=== PATIENT | female | born 1975 | race Caucasian/White ===

== ENCOUNTER 2016-04-11 12:50 | Emergency (ER) | payer BC ==
[2016-04-11 12:59] VITALS: BP 129/87
--- NOTE | 2016-04-11 13:50 | UC ---
Gabo Barraza Anna, [facility] on 04/11/16 at 1323 . Eye Complaint HPI - HPI Summary HPI Summary: MD Note Vital signs stable. Afebrile, pulse ox 99. Occasional alcohol, nonsmoker. No prescription medications. Allergic to Sulfa. No visit history in our records. 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 pt states that it increased in the area to mostly the rt eye. pt states that the area mostly has gone now and now feels numb. In Room Note Patient is a 40 y/o female coming to [facility] presenting with gradual onset of BLURRED VISION in her right eye at 1150 today, since resolved. 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 The rippling that she saw extended to more of her field of vision. The rippling prevented an image in the right corner of her right eye. This lasted 45 minutes and is now resolved. She could not see her hand until it was in front of her face. She experienced some NAUSEA at that time. She always sees floating things in her vision. She had some DIARRHEA this morning. She has some TINGLING at baseline. She denies NATARAJAN, tinnitus. She denies history of migraines. Her period started yesterday. 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 - accompanied by Hx Last Menstrual Period: 04/10/16 - Allergies/Home Medications Allergies/Adverse Reactions: Allergies Allergy/AdvReac Type Severity Reaction Status Date / Time Sulfa Antibiotics Allergy Anaphylatic Verified 04/11/16 12:58 Shock Home Medications: Home Medications Cholecalciferol [Vitamin D] 1,000 unit PO 04/11/16 [History] PMH/Surg Hx/FS Hx/Imm Hx Previously Healthy: Yes Endocrine History Of: Denies: Diabetes - Surgical History Surgical History: Yes Surgery Procedure, Year, and Place: acl replacement, wisdom teeth extraction - Family History Known Family History: Positive: Other - Hx CA in father Negative: Cardiac Disease, Diabetes - Social History Occupation: Employed Full-time Lives: With Family Alcohol Use: Occasionally Substance Use Type: None Smoking Status (MU): Never Smoked Tobacco Review of Systems Constitutional: Negative Skin: Negative Eyes: Blurred Vision ENT: Negative Respiratory: Negative Cardiovascular: Negative Gastrointestinal: Diarrhea, Other - nausea Genitourinary: Negative Motor: Negative Neurovascular: Negative Musculoskeletal: Negative Neurological: Paresthesia Psychological: Negative All Other Systems Reviewed And Are Negative: Yes Physical Exam Triage Information Reviewed: Yes Appearance: Well-Appearing, No Pain Distress, Well-Nourished Vital Signs: Initial Vital Signs Temp 98.3 F 04/11/16 12:53 Pulse 81 04/11/16 12:53 Resp 18 04/11/16 12:53 BP 129/87 04/11/16 12:53 Pulse Ox 99 04/11/16 12:53 Eyes: Positive: Conjunctiva Clear, Other: - PERRL. No obvious abnormality on examination of fundi. ENT: Positive: Hearing grossly normal, Pharynx normal, TMs normal. Negative: Muffled/hoarse voice Neck: Positive: Supple, No Lymphadenopathy Respiratory: Positive: Chest non-tender, Lungs clear, Normal breath sounds, No respiratory distress Cardiovascular: Positive: RRR, No Murmur Abdomen Description: Positive: Nontender, No Organomegaly, Soft Bowel Sounds: Positive: Present Musculoskeletal: Positive: Strength Intact, Other: - FORREST Neurological: Positive: Alert Psychological: Positive: Age Appropriate Behavior Skin: Negative: rashes Eye Complaint Course/Dx - Course Course Of Treatment: Discussed with patient and her the history of transient visual deficit. Now resolved. Could be an abnormality of the retina and I told the pt she needs to be seen by an ruby on rails software developer. She will go to Dr. Church's She voiced understanding and agreement. Differential includes vitreous v. retinal detachment v. atypical migraine v. other. Dx transient visual deficit right eye: ? vitreous ?retinal detachment - Differential Dx/Diagnosis Differential Diagnosis/HQI/PQRI: Other - atypical migraine v. other v. Vitreous v. retinal detachment Provider Diagnoses: transient visual deficit right eye: ? Vitreous detachment ? retinal detachment Discharge - Discharge Plan Condition: Stable Disposition: HOME Patient Education Materials: Retinal Detachment (GEN) Additional Instructions: WE DISCUSSED: Your transient loss of vision needs further evaluation. We have discussed you symptoms with Dr. Church's office. Please be seen there now. The documentation as recorded by the Gabo wiseman Anna accurately reflects the service I personally performed and the decisions made by me, Kaden Gomez MD.
== END 2016-04-11 13:49 | disposition home or self-care (01) ==
LOC: UCEAST 12:50 → MERGE 12:50 → UCEAST 13:49
DX: H53.121 Transient visual loss, right eye (principal); R11.0 Nausea; R19.7 Diarrhea, unspecified; Z88.2 Allergy status to sulfonamides
CPT/HCPCS: 99201; G0463

== ENCOUNTER 2017-01-25 14:26 | Emergency (ER) | payer BC ==
[2017-01-25 14:49] VITALS: BP 109/62
--- NOTE | 2017-01-25 14:53 | UC ---
Throat Pain/Nasal Karl HPI - HPI Summary HPI Summary: 41 year old female presents with complains of sore throat and intermittent cough. - History of Current Complaint Chief Complaint: UCRespiratory Stated Complaint: SORE THROAT Time Seen by Provider: 01/25/17 14:53 Hx Obtained From: Patient Hx Last Menstrual Period: 12/10/15 Onset/Duration: Sudden Onset Severity: Moderate Pain Scale Used: 0-10 Numeric - 5 Cough: Nonproductive Associated Signs & Symptoms: Positive: Nasal Discharge - Allergies/Home Medications Allergies/Adverse Reactions: Allergies Allergy/AdvReac Type Severity Reaction Status Date / Time Sulfa Antibiotics Allergy Anaphylatic Verified 05/17/16 13:19 Shock Bee Venom Allergy Swelling Uncoded 05/17/16 13:19 Home Medications: Home Medications Ascorbic Acid TAB* [Vitamin C TAB*] 500 mg PO DAILY 01/25/17 [History Confirmed 01/25/17] Lactobacillus [Probiotic] 1 cap PO 01/25/17 [History] [place]-3 Fatty Acids [[place] 3] 1 cap PO 01/25/17 [History] PMH/Surg Hx/FS Hx/Imm Hx Previously Healthy: Yes - Surgical History Surgical History: Yes Surgery Procedure, Year, and Place: ACL REPAIR RT KNEE,WISDOM TEETH EXTRACTION - Family History Known Family History: Positive: Other - FATHER CANCER Negative: Cardiac Disease, Diabetes - Social History Alcohol Use: Weekly Substance Use Type: None Smoking Status (MU): Never Smoked Tobacco Review of Systems Constitutional: Negative Skin: Negative Eyes: Negative ENT: Sore Throat, Nasal Discharge, Sinus Congestion, Sinus Pain/Tenderness Respiratory: Negative Cardiovascular: Negative Gastrointestinal: Negative Genitourinary: Negative Motor: Negative Neurovascular: Negative Musculoskeletal: Negative Neurological: Negative Psychological: Negative All Other Systems Reviewed And Are Negative: Yes Physical Exam Triage Information Reviewed: Yes Vital Signs: Initial Vital Signs Temp 36.8 C 01/25/17 14:43 Pulse 78 01/25/17 14:43 Resp 18 01/25/17 14:43 BP 109/62 01/25/17 14:43 Pulse Ox 100 01/25/17 14:43 Vital Signs Reviewed: Yes Eye Exam: Normal ENT: Positive: Nasal congestion, Nasal drainage, Sinus tenderness Dental Exam: Normal Neck exam: Normal Neck: Positive: 1 Respiratory Exam: Normal Cardiovascular Exam: Normal Abdominal Exam: Normal Musculoskeletal Exam: Normal Neurological Exam: Normal Psychological Exam: Normal Skin Exam: Normal Throat Pain/Nasal Course/Dx - Differential Dx/Diagnosis Provider Diagnoses: pharyngitis. allergic rhinitis Discharge - Discharge Plan Condition: Stable Disposition: HOME Prescriptions: Amoxicillin PO (*) [Amoxicillin 875 MG (*)] 875 mg PO BID #20 tab LoraTADine TAB(NF) [Claritin 10 MG TAB(NF)] 10 mg PO DAILY #30 tab Magic M W2 Kp/Maal/Nyst/Lido* 5 ml SWISH SPIT QID PRN #120 ml PRN Reason: Pain Patient Education Materials: Pharyngitis (ED) Referrals: Hodan Spangler MD [Primary Care Provider] -
== END 2017-01-25 15:25 | disposition home or self-care (01) ==
LOC: UCEAST 14:26
DX: J02.9 Acute pharyngitis, unspecified (principal); J30.9 Allergic rhinitis, unspecified
CPT/HCPCS: 87651; 99212; G0463

== ENCOUNTER 2017-06-20 15:46 | Emergency (ER) | payer BC ==
[2017-06-20 16:01] VITALS: BP 120/70
--- NOTE | 2017-06-20 16:26 | RAD ---
INDICATION: Left-sided chest pain COMPARISON: Chest x-ray dated March 27, 2015 TECHNIQUE: PA and lateral views of the chest were obtained. FINDINGS: The heart and mediastinum are normal in size and contour. The lungs are grossly clear. There is no evidence of large pleural effusion. Visualized bones are normal for the patient's age. There is no radiographic evidence of free air beneath the diaphragm IMPRESSION: No radiographic evidence of acute cardiopulmonary disease.
--- NOTE | 2017-06-20 17:15 | UC ---
Cardiac HPI - HPI Summary HPI Summary: 41 yo WF no pmhX c/o left upper chest pain , feels like rubber bands pulling at her chest, somewhat reproducible at times, associated with upper shoulder and bella back pain. Denies n/v/f/c/d. Suddenly came on while she was not eating herself at the [employer] Denies fmhx of early cardiac deaths in 30' or 40's. - History of Current Complaint Chief Complaint: UCChestPain Stated Complaint: CHEST TIGHTNESS Time Seen by Provider: 06/20/17 16:07 Hx Last Menstrual Period: 06/11/17 Initial Severity: Moderate Current Severity: Moderate Pain Intensity: 1 Chest Pain Location: Left Anterior, Left Lateral Character: Tightness Aggravating Factor(s): Nothing Alleviating Factor(s): Spontaneous Resolution, Nothing Associated Signs & Symptoms: Negative: Numbness, Tingling, Weakness, Dizziness, SOB, Syncope, Palpitations, Cough, Back Pain, Abdominal Pain - Allergy/Home Medications Allergies/Adverse Reactions: Allergies Allergy/AdvReac Type Severity Reaction Status Date / Time Sulfa (Sulfonamide Allergy Anaphylatic Verified 06/20/17 16:01 Antibiotics) Shock Bee Venom Allergy Swelling Uncoded 06/20/17 16:01 PMH/Surg Hx/FS Hx/Imm Hx Previously Healthy: Yes - Surgical History Surgical History: Yes Surgery Procedure, Year, and Place: ACL REPAIR RT KNEE,WISDOM TEETH EXTRACTION - Family History Known Family History: Positive: Other - FATHER CANCER Negative: Cardiac Disease, Diabetes - Social History Alcohol Use: Weekly Substance Use Type: None Smoking Status (MU): Never Smoked Tobacco Review of Systems Constitutional: Negative Skin: Negative Eyes: Negative ENT: Negative Respiratory: Negative Cardiovascular: Chest Pain - left upper chest tightness Gastrointestinal: Negative Genitourinary: Negative Motor: Negative Neurovascular: Negative Musculoskeletal: Negative Neurological: Negative Psychological: Negative All Other Systems Reviewed And Are Negative: Yes Physical Exam Triage Information Reviewed: Yes Appearance: Well-Appearing Vital Signs: Initial Vital Signs Temp 37.1 C 06/20/17 15:55 Pulse 77 06/20/17 15:55 Resp 18 06/20/17 15:55 BP 120/70 06/20/17 15:55 Pulse Ox 99 06/20/17 15:55 Eye Exam: Normal ENT Exam: Normal Dental Exam: Normal Neck exam: Normal Neck: Positive: 1 Respiratory Exam: Normal Cardiovascular: Positive: Other: - mild TTP on left upper lateral pectoralis muscle and anterior deltoid, but at times feels deeper. Abdominal Exam: Normal Musculoskeletal Exam: Normal Neurological Exam: Normal Psychological Exam: Normal Skin Exam: Normal Diagnostics - EKG Cardiac Rate: NL - RATE 71, 2nd EKG 64 Cardiac Rhythm: Sinus: Normal Ectopy: None ST Segment: Normal, Non-Specific - mild flattening of T wave inV1 and V2, similar in 2nd EKG - Assessment/Plan Course Of Treatment: EKG neg for acute STT changes or TWI, Neg for pulmonary pathology. Pt worried about the left upper chest pain, appears anxious, due to father having had [place] at age 78. Advised to go to ER for if CP persists. - Differential Diagnoses - Chest Pain Differential Diagnosis/HQI/PQRI: Acute [place], ACS, Angina, GI Disease, Lower Respiratory Infection - Clinical Impression Provider Diagnoses: Atypical CP. Musculoskeletal pain Discharge - Sign-Out/Discharge Documenting (check all that apply): Discharge/Admit/Transfer - Discharge Plan Condition: Stable Disposition: HOME Discharge Disposition Comment: recommended to go to ED if CP persists to get cardiac enzymes Referrals: Hodan Spangler MD [Primary Care Provider] - - Billing Disposition and Condition Condition: STABLE Disposition: HOME
== END 2017-06-20 17:38 | disposition home or self-care (01) ==
LOC: UCEAST 15:46
DX: R07.89 Other chest pain (principal); M79.1 Myalgia; Z82.49 Family history of ischemic heart disease and other diseases of the circulatory system; Z91.030 Bee allergy status; Z88.2 Allergy status to sulfonamides
CPT/HCPCS: 71046; 93005; 99211; G0463

== ENCOUNTER 2017-06-20 18:01 | Emergency (ER) | payer BC ==
[2017-06-20 20:16] LABS: ABS Basophils 0 10^3/ul (0-0.2); ABS Eosinophils 0.1 10^3/ul (0-0.6); ABS Monocytes 0.4 10^3/ul (0-0.8); ABS Neutrophils 3.4 10^3/ul (1.5-7.7); ABS Nucleated RBC 0 10^3/ul; Eosinophil % 0.8 % (0-6); Hematocrit 39 % (35-47); Hemoglobin 13.2 g/dl (12.0-16.0); Lymphocyte % 34.3 % (25-47); Mean Corpuscular HGB Conc 34 g/dl (31-36); Mean Corpuscular Hemoglobin 30 pg (27-31); Mean Corpuscular Volume 88 fL (80-97); Mean Platelet Volume 8.8 um3 (7.4-10.4); Nucleated Red Blood Cells % 0; Platelet Count 205 10^3/ul (150-450); Red Blood Count 4.43 10^6/ul (4.0-5.4); Red Cell Distribution Width 14 % (10.5-15)
[2017-06-20 20:32] LABS: EGFR Non-African American 75.5 (>60)
[2017-06-20 21:05] VITALS: BP 103/67
--- NOTE | 2017-06-20 21:16 | ED ---
Quinn Barraza Natalie, scribed for Levon Mobley MD on 06/20/17 at 1946 . HPI Chest Pain - HPI Summary HPI Summary: The pt is a 41 y/o F presenting to the ED from Urgent Care c/o left upper sternal chest pain and tightness starting last night. Shes been having a similar pain for a few months, and she just saw her PCP two weeks ago, who diagnosed her with a murmur. She had a discomfort last night that dissipated when she lied down. Her pain started again today at 14:45, she had pain described as a tension of rubberbands pulling from shoulder to center of chest, causing her to go to Urgent Care. Pt denies leg swelling. She last traveled two months ago to [place], [place]. - History of Current Complaint Chief Complaint: EDChestPainROMI Time Seen by Provider: 06/20/17 19:10 Hx Last Menstrual Period: 06/11/17 Onset/Duration: Started Hours Ago - last night, Resolved Timing: Intermittent, Lasting Hours Initial Severity: Severe Current Severity: Mild Pain Intensity: 1 Pain Scale Used: 0-10 Numeric Chest Pain Location: Upper Sternal - left Chest Pain Radiates: No Character: Other: - "rubberbands pullint', tension Aggravating Factor(s): Nothing Alleviating Factor(s): Rest Associated Signs and Symptoms: Negative: Calf Pain/Swelling - Allergy/Home Medications Allergies/Adverse Reactions: Allergies Allergy/AdvReac Type Severity Reaction Status Date / Time Sulfa (Sulfonamide Allergy Anaphylatic Verified 06/20/17 16:01 Antibiotics) Shock Bee Venom Allergy Swelling Uncoded 06/20/17 16:01 PMH/Surg Hx/FS Hx/Imm Hx Endocrine/Hematology History: Denies: Hx Diabetes, Hx Thyroid Disease Cardiovascular History: Denies: Hx Hypertension, Hx Pacemaker/ICD Respiratory History: Denies: Hx Asthma, Hx Chronic Obstructive Pulmonary Disease (COPD) GI History: Denies: Hx Ulcer History: Denies: Hx Renal Disease Sensory History: Denies: Hx Hearing Aid Psychiatric History: Denies: Hx Panic Disorder - Surgical History Surgery Procedure, Year, and Place: ACL REPAIR RT KNEE,WISDOM TEETH EXTRACTION Infectious Disease History: No Infectious Disease History: Denies: Hx Clostridium Difficile, Hx Hepatitis, Hx Human Immunodeficiency Virus (HIV), Hx of Known/Suspected MRSA, Hx Shingles, Hx Tuberculosis, Hx Known/ Suspected VRE, Hx Known/Suspected VRSA, History Other Infectious Disease, Traveled Outside the [place] in Last 30 Days - Family History Known Family History: Positive: Other - FATHER CANCER Negative: Cardiac Disease, Diabetes - Social History Alcohol Use: Weekly Substance Use Type: Reports: None Smoking Status (MU): Never Smoked Tobacco Review of Systems Positive: Chest Pain Negative: Edema All Other Systems Reviewed And Are Negative: Yes Physical Exam - Summary Physical Exam Summary: Appearance: The patient is well-nourished in no acute distress and in no acute pain. Skin: The skin is warm and dry and skin color reflects adequate perfusion. HEENT: The head is normocephalic and atraumatic. The pupils are equal and reactive. The conjunctivae are clear and without drainage. Nares are patent and without drainage. Mouth reveals moist mucous membranes and the throat is without erythema and exudate. The external ears are intact. The ear canals are patent and without drainage. The tympanic membranes are intact. Neck: the neck is supple with full range of motion and non-tender. There are no carotid bruits. There is no neck vein distension. Respiratory: Chest is non-tender. Lungs are clear to auscultation and breath sounds are symmetrical and equal. Cardiovascular: Heart is regular rate and rhythm. There is no murmur or rub auscultated. There is no peripheral edema and pulses are symmetrical and equal. Abdomen: The abdomen is soft and non-tender. There are normal bowel sounds heard in all four quadrants and there is no organomegaly palpated. Musculoskeletal: There is no back tenderness noted. Extremities are non-tender with full range of motion. There is good capillary refill. There is no peripheral edema or calf tenderness elicited. Neurological: Patient is alert and oriented to person, place and time. The patient has symmetrical motor strength in all four extremities. Cranial nerves are grossly intact. Deep tendon reflexes are symmetrical and equal in all four extremities. Psychiatric: The patient has an appropriate affect and does not exhibit any anxiety or depression. Triage Information Reviewed: Yes Vital Signs On Initial Exam: Initial Vitals Temp Pulse Resp BP Pulse Ox 98 F 72 16 119/76 100 06/20/17 18:03 06/20/17 18:03 06/20/17 18:03 06/20/17 18:03 06/20/17 18:03 Vital Signs Reviewed: Yes Diagnostics - Vital Signs Vital Signs Temp Pulse Resp BP Pulse Ox 06/20/17 19:11 78 23 105/68 100 06/20/17 19:10 62 16 100 06/20/17 18:03 98 F 72 16 119/76 100 - Laboratory Lab Results: Lab Results 06/20/17 06/20/17 06/20/17 Range/Units 20:07 20:07 20:07 WBC 6.0 (3.5-10.8) 10^3/ul RBC 4.43 (4.0-5.4) 10^6/ul Hgb 13.2 (12.0-16.0) g/dl Hct 39 (35-47) % MCV 88 (80-97) fL MCH 30 (27-31) pg MCHC 34 (31-36) g/dl RDW 14 (10.5-15) % Plt Count 205 (150-450) 10^3/ul MPV 8.8 (7.4-10.4) um3 Neut % (Auto) 57.7 (38-83) % Lymph % (Auto) 34.3 (25-47) % [place] % (Auto) 6.4 (0-7) % Eos % (Auto) 0.8 (0-6) % Baso % (Auto) 0.8 (0-2) % Absolute Neuts (auto) 3.4 (1.5-7.7) 10^3/ul Absolute Lymphs (auto) 2.0 (1.0-4.8) 10^3/ul Absolute Monos (auto) 0.4 (0-0.8) 10^3/ul Absolute Eos (auto) 0.1 (0-0.6) 10^3/ul Absolute Basos (auto) 0 (0-0.2) 10^3/ul Absolute Nucleated RBC 0 10^3/ul Nucleated RBC % 0 D-Dimer, Quantitative < 200 (Less Than 230) ng/mL Sodium 138 L (139-145) mmol/L Potassium 3.6 (3.5-5.0) mmol/L Chloride 102 (101-111) mmol/L Carbon Dioxide 29 (22-32) mmol/L Anion Gap 7 (2-11) mmol/L BUN 14 (6-24) mg/dL Creatinine 0.84 (0.51-0.95) mg/dL Est GFR ( Amer) 97.1 (>60) Est GFR (Non-Af Amer) 75.5 (>60) BUN/Creatinine Ratio 16.7 (8-20) Glucose 101 H (70-100) mg/dL Lactic Acid (0.5-2.0) mmol/L Calcium 9.8 (8.6-10.3) mg/dL Total Bilirubin 0.50 (0.2-1.0) mg/dL AST 13 (13-39) U/L ALT 9 (7-52) U/L Alkaline Phosphatase 37 (34-104) U/L Troponin I 0.01 (<0.04) ng/mL Total Protein 7.4 (6.4-8.9) g/dL Albumin 4.8 (3.2-5.2) g/dL Globulin 2.6 (2-4) g/dL Albumin/Globulin Ratio 1.8 (1-3) 05/18 Range/Units 20:07 WBC (3.5-10.8) 10^3/ul RBC (4.0-5.4) 10^6/ul Hgb (12.0-16.0) g/dl Hct (35-47) % MCV (80-97) fL MCH (27-31) pg MCHC (31-36) g/dl RDW (10.5-15) % Plt Count (150-450) 10^3/ul MPV (7.4-10.4) um3 Neut % (Auto) (38-83) % Lymph % (Auto) (25-47) % [place] % (Auto) (0-7) % Eos % (Auto) (0-6) % Baso % (Auto) (0-2) % Absolute Neuts (auto) (1.5-7.7) 10^3/ul Absolute Lymphs (auto) (1.0-4.8) 10^3/ul Absolute Monos (auto) (0-0.8) 10^3/ul Absolute Eos (auto) (0-0.6) 10^3/ul Absolute Basos (auto) (0-0.2) 10^3/ul Absolute Nucleated RBC 10^3/ul Nucleated RBC % D-Dimer, Quantitative (Less Than 230) ng/mL Sodium (139-145) mmol/L Potassium (3.5-5.0) mmol/L Chloride (101-111) mmol/L Carbon Dioxide (22-32) mmol/L Anion Gap (2-11) mmol/L BUN (6-24) mg/dL Creatinine (0.51-0.95) mg/dL Est GFR ( Amer) (>60) Est GFR (Non-Af Amer) (>60) BUN/Creatinine Ratio (8-20) Glucose (70-100) mg/dL Lactic Acid 0.8 (0.5-2.0) mmol/L Calcium (8.6-10.3) mg/dL Total Bilirubin (0.2-1.0) mg/dL AST (13-39) U/L ALT (7-52) U/L Alkaline Phosphatase (34-104) U/L Troponin I (<0.04) ng/mL Total Protein (6.4-8.9) g/dL Albumin (3.2-5.2) g/dL Globulin (2-4) g/dL Albumin/Globulin Ratio (1-3) Result Diagrams: 06/20/17 20:07 06/20/17 20:07 Lab Statement: Any lab studies that have been ordered have been reviewed, and results considered in the medical decision making process. - EKG 17:04 Cardiac Rate: NL EKG Rhythm: Sinus Rhythm - 64 BPM 18:06 Cardiac Rate: NL EKG Rhythm: Sinus Rhythm - 68 BPM Chest Pain Course/Dx - Course Assessment/Plan: Ms. Naranjo presents with an atypical chest pain that she has had on and off for a few weeks and which worsened at 1445 today but is a lot better now. Her W/U was negative including a troponin and a d-dimer. This sounds radicular to me and she does acknowledge that she does have a lot of back problems. - Diagnoses Provider Diagnoses: Chest pain Discharge - Sign-Out/Discharge Documenting (check all that apply): Post-Discharge Follow Up - Discharge Plan Condition: Stable Disposition: HOME Patient Education Materials: Chest Pain (ED) Referrals: Hodan Spangler MD [Primary Care Provider] - 3 Days Additional Instructions: Follow up with your primary care physician in 2-3 days. Return to the emergency department for any new or worsening symptoms. - Billing Disposition and Condition Condition: STABLE Disposition: HOME The documentation as recorded by the Quinn wiseman Natalie accurately reflects the service I personally performed and the decisions made by me, Levon Mobley MD.
== END 2017-06-20 21:21 | disposition home or self-care (01) ==
LOC: ED 18:01
DX: R07.89 Other chest pain (principal)
CPT/HCPCS: 36415; 80053; 83605; 84484; 85025; 85379; 93005; 99283

== ENCOUNTER 2018-05-25 16:35 | Emergency (ER) | payer BC ==
--- NOTE | 2018-05-25 16:36 | UC ---
Skin Complaint HPI - HPI Summary HPI Summary: 42 yo female presents with rash on right chin first noticed last night. She tells me that last night she noticed a blister to the right side of her jaw that "deflated" and "flattened". She applied some bactroban cream that she had at home last night and this morning. Today noticed some surrounding redness and crusting to the area. She had no prior numbness, burning, or tingling. She does have a hx of MRSA. Denies recent illness, fever, or chills. - History of Current Complaint Time Seen by Provider: 05/25/18 16:36 Stated Complaint: RASH Hx Obtained From: Patient Hx Last Menstrual Period: 06/11/17 Onset/Duration: Sudden Onset Onset Severity: Mild Current Severity: Mild Pain Intensity: 2 Pain Scale Used: 0-10 Numeric - Allergy/Home Medications Allergies/Adverse Reactions: Allergies Allergy/AdvReac Type Severity Reaction Status Date / Time Sulfa (Sulfonamide Allergy Anaphylatic Verified 05/25/18 16:56 Antibiotics) Shock Bee Venom Allergy Swelling Uncoded 06/20/17 16:01 Home Medications: Home Medications Mupirocin 2% CREAM* [Bactroban 2% CREAM*] 1 applic TOPICAL BID 05/25/18 [ History Confirmed 05/25/18] PMH/Surg Hx/FS Hx/Imm Hx - Additional Past Medical History Additional PMH: Hx of MRSA - Surgical History Surgical History: Yes Surgery Procedure, Year, and Place: ACL REPAIR RT KNEE,WISDOM TEETH EXTRACTION - Family History Known Family History: Positive: Other - FATHER CANCER Negative: Cardiac Disease, Diabetes - Social History Occupation: Employed Full-time Lives: With Family Alcohol Use: Weekly Substance Use Type: None Smoking Status (MU): Never Smoked Tobacco Review of Systems All Other Systems Reviewed And Are Negative: Yes Constitutional: Positive: Negative Skin: Positive: Rash - right jaw Respiratory: Positive: Negative Cardiovascular: Positive: Negative Neurological: Positive: Negative Psychological: Positive: Negative Physical Exam - Summary Physical Exam Summary: GENERAL: NAD. WDWN. No pain distress. SKIN: RIGHT JAW: Skin with 1.5cm area of mild erythema and central faint yellow- colored crusting. Mild TTP. No dermatome TTP or similar appearing lesions. No blistering, streaking, or drainage. NECK: Supple. Nontender. No lymphadenopathy. CHEST: No accessory muscle use. Breathing comfortably and in no distress. CV: Pulses intact. Cap refill <2seconds NEURO: Alert. PSYCH: Age appropriate behavior. Triage Information Reviewed: Yes Vital Signs: Vital Signs: Temp Pulse Resp BP Pulse Ox 99 F 62 14 109/75 100 05/25/18 16:40 05/25/18 16:40 05/25/18 16:40 05/25/18 16:40 05/25/18 16:40 Vital Signs Reviewed: Yes Course/Dx - Course Course Of Treatment: Discussed case with Dr. Guaman, who also examined the patient. DDx includes shingles vs wound infection. After discussing with Dr. Guaman, seems less likely to be shingles as pt had no prodrome and has no dermatome tenderness. Will have her continue bactroban and will cover her for MRSA skin infection with doxycycline. Advised pt that if rash spreads or develops pain to be rechecked. - Diagnoses Provider Diagnosis: Skin infection Discharge - Sign-Out/Discharge Documenting (check all that apply): Patient Departure All imaging exams completed and their final reports reviewed: No Studies - Discharge Plan Condition: Stable Disposition: HOME Prescriptions: DOXYcycline CAP(*) [DOXYcycline 100MG CAP(*)] 100 mg PO BID #14 cap Patient Education Materials: MRSA (Methicillin-Resistant Staphylococcus Aureus ) (ED) Referrals: Hodan Spangler MD [Primary Care Provider] - Additional Instructions: If you develop a fever, shortness of breath, chest pain, new or worsening symptoms - please call your PCP or go to the ED. Continue using the bactroban cream in addition to the oral antibiotic - Billing Disposition and Condition Condition: STABLE Disposition: Home - Attestation Statements Provider Attestation: I was available for consult. This patient was seen by the DENAE. The patient was not presented to, seen by, or examined by me. -Jonathon
--- OUTSIDE RECORDS SUMMARY | 2018-05-25 16:39 | XMS REPORT | Continuity of Care Document ---
:1975 External Reference #:[id number] Author Name Covert, Ileana Care Team Providers Name Role Phone Hodan Spangler MD Primary Care Physician Unavailable Payers Date Identification Numbers Payment Provider Subscriber Effective: 2012 Policy Number: [id number] [facility] Ronnell Karina Group Number: [id number] [address] PayID: [id number] [place] [address] Advance Directives Description No Information Available Problems Date Description Provider Status Onset: 02/16/2013 Generalized anxiety disorder Becki Cruz M.D. Active Onset: 07/21/2014 Skin sensation disturbance Elvia Barlow M.D. Active Onset: 07/21/2014 Ulnar neuropathy Elvia Barlow M.D. Active Onset: 05/16/2016 Migraine Hodan Spangler M.D. Active Onset: 05/16/2016 Cervical syndrome Hodan Spangler M.D. Active Onset: 05/16/2016 Allergic reaction to bee sting Hodan Spangler M.D. Active Onset: 05/16/2016 Rosacea Hodan Spangler M.D. Active Onset: 06/03/2017 Amaurosis fugax Mckinley Brooks M.D. Active Onset: 09/26/2017 Autonomic dysreflexia Cathie Palma M.D. Active Onset: 09/26/2017 Family history of ischemic heart Cathie Palma M.D. Active disease and other diseases of the circulatory system Onset: 02/16/2013 Tension-type headache Nurse Visit C Inactive Inactive: 05/16/2016 Onset: 11/05/2016 Transient visual loss Elvia M. Stackman, M.D. Resolved Resolved: 04/13/2018 Family History Date Family Member(s) Observation Comments General Lupus Father Cancer Father [place] 78 yo (2018). 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 [employer] Tobacco Use Start: Unknown End: Exposer to second hand Father smoked Unknown smmoke as a kid ETOH Use Occasionally consumes alcohol Tobacco Use Start: Unknown Patient has never smoked Recreational Drug Use Denies Drug Use Smoking Status Reviewed: 05/08/18 Patient has never smoked Exercise Type/Frequency Exercises rarely Allergies, Adverse Reactions, Alerts Date Description Reaction Status Severity Comments 01/21/2013 Bee Sting Unknown Active 09/08/2013 Sulfa Antibiotics Active Medications Medication Date Status Form Strength Qnty SIG Indications Ordering Provider Epipen 2-Hector 08/23 Active Solution 0.3mg/0.3 1unit use as Hodan /2015 Auto-Inje ML s directed keenan Spangler for severe M.D. anaphylaxis ( exposure to bee sting ) Vitamin D3 Active Gummies 1 by mouth Unknown / every day in winter Ibuprofen Active 200mg 2 tablet po as needed for pain Vitamin K2 Active Capsules 100mcg 1 by mouth Unknown / every day Black Active Capsules 575mg as needed Unknown Elderberry(Gaytan- lower) Benzonatate 01/29 Hx Capsules 100mg 30cap take one or J06.9 Francisco /2015 s two Filipe, MANAGER CAR - capsules 02/05 every hours as needed for cough. Amoxicillin/Clavul 12/18 Hx Tablets 875-125mg 20tab take one J02.9 Francisco anate Potassium s tablet q12 Filipe, MANAGER CAR - hours for 12/28 10 days Hydroxyzine 03/27 Hx Capsules 25mg 30cap 1/2-2 caps F41.9 Francisco Pamoate s by mouth Filipe, MANAGER CAR - four times 12/18 a day needed for anxiety(Gabby nged to Tablets) Metronidazole 01/26 Hx Gel 0.75% 1tube apply a L71.9 Becki /2014 rebeca Cruz, - amount to M.D. 12/18 face 3x per day Doxycycline 08/23 Hx Capsules 100mg 14cap 1 tab by 680.0 Kaden Andersonclate s mouth twice Vasquez, MANAGER CAR - a day x 7 No Active 12/03 Hx Unknown Medications /2013 - 01/20 Hydrochlorothiazid 09/12 Hx Capsules 12.5mg 15cap 1 by mouth Becki s every day Florinda Cruz M.D. 12/03 Fluconazole 09/12 Hx Tablets 150mg 2tabs 1 by mouth Becki once Florinda Cruz M.D. 12/03 No Active 09/08 Hx Unknown Medications - 09/08 Meclizine HCL 09/08 Hx Tablets 25mg 30tab 1 tablet 386.11 Liberty s every 8 Varn, - hours as N.P. 09/22 needed vertigo Clarithromycin 06/10 Hx Tablets 500mg 20tab 1 by mouth 461.1 Hodan /2014 s twice a day Florinda Spangler M.D. 09/08 No Active 01/21 Hx Becki Florinda Cruz M.D. 06/10 Co Q-10 Hx Capsules 30mg 1 by mouth Unknown /0000 every day - 01/26 Selenium 00/ Hx Tablets 1 by mouth Unknown /0000 every day - 03/27 Iron Up 0000 Hx Liquid QS Unknown /0000 - 07/20 Vitamin B12 00/00 Hx Liquid daily Unknown /0000 - 07/20 Holy Basil 00 Hx one tab Unknown /0000 daily - 07/28 Aspirin Adult Low 0000 Hx Tablets 81mg 1 by mouth Unknown Dose /0000 every day - 10/29 Immunizations CPT Code Status Date Vaccine Lot # [id number] Given 03/01/2017 Influenza Virus Vaccine, Quadrivalent, Split, Preservative Free [id number] Given 12/23/2014 Flu Mist Vaccine, Live For Intranasal Use [id number] Given 12/03/2013 Flu Vaccine Split Virus Preservative Free For Indiv [id number] [id number] Older [id number] Given 05/19/2008 Tdap - Tetanus/Diptheria/Acellular Pertussis [id number] Refused 04/13/2018 Influenza Virus Vaccine, Quadrivalent, Split, Preservative Free Vital Signs Date Vital Result Comment 05/08/2018 8:35am Height 67 inches 5'7" Weight 154.38 lb with boots Heart Rate 82 /min BP Systolic Sitting 122 mmHg BP Diastolic Sitting 78 mmHg BP Systolic Standing 118 mmHg BP Diastolic Standing 78 mmHg BMI (Body Mass Index) 24.2 kg/m2 Ejection Fraction 60-65% 06/06/17 Echo 04/13/2018 10:57am Height 67 inches 5'7" Weight 151.00 lb Heart Rate 92 /min BP Systolic Sitting 120 mmHg BP Diastolic Sitting 68 mmHg BP Systolic Standing 110 mmHg BP Diastolic Standing 68 mmHg O2 % BldC Oximetry 98 % BMI (Body Mass Index) 23.6 kg/m2 10/29/2017 11:23am Height 67 inches 5'7" Weight 151.00 lb Heart Rate 74 /min BP Systolic Sitting 110 mmHg BP Diastolic Sitting 64 mmHg O2 % BldC Oximetry 98 % BMI (Body Mass Index) 23.6 kg/m2 09/26/2017 8:40am Height 67 inches 5'7" Weight 151.00 lb shoes Heart Rate 78 /min BP Systolic Sitting 102 mmHg lue rg cuff BP Diastolic Sitting 62 mmHg lue rg cuff BP Systolic Standing 106 mmHg lue rg cuff BP Diastolic Standing 64 mmHg lue rg cuff Respiratory Rate 18 /min BMI (Body Mass Index) 23.6 kg/m2 Ejection Fraction 60-655 echo 06/06/17 09/25/2017 12:52pm Height 67 inches 5'7" Weight 149.00 lb Heart Rate 62 /min BP Systolic Sitting 110 mmHg Lue reg cuff BP Diastolic Sitting 64 mmHg Lue reg cuff BP Systolic Standing 106 mmHg Lue BP Diastolic Standing 70 mmHg Lue Respiratory Rate 16 /min BMI (Body Mass Index) 23.3 kg/m2 Ejection Fraction 60-65% as of 05/2017 echo 08/11/2017 1:35pm Weight 151.00 lb with shoes Heart Rate 74 /min BP Systolic 110 mmHg rue reg cuff BP Diastolic 62 mmHg rue reg cuff BP Systolic Sitting 106 mmHg lue reg cuff BP Diastolic Sitting 64 mmHg lue reg cuff BP Systolic Standing 112 mmHg BP Diastolic Standing 64 mmHg Respiratory Rate 16 /min Ejection Fraction 60-65% echo 06/06/2017 06/18/2017 4:23pm Weight 148.00 lb Heart Rate 74 /min BP Systolic Sitting 118 mmHg BP Diastolic Sitting 80 mmHg O2 % BldC Oximetry 98 % 06/03/2017 8:49am Height 67 inches 5'7" Weight 150.00 lb Heart Rate 66 /min BP Systolic Sitting 108 mmHg BP Diastolic Sitting 76 mmHg Respiratory Rate 16 /min BMI (Body Mass Index) 23.5 kg/m2 11/05/2016 8:46am Height 67 inches 5'7" Weight 145.00 lb Heart Rate 68 /min BP Systolic Sitting 110 mmHg BP Diastolic Sitting 58 mmHg Respiratory Rate 16 /min BMI (Body Mass Index) 22.7 kg/m2 05/16/2016 10:54am Height 67 inches 5'7" Weight 148.38 lb Heart Rate 89 /min BP Systolic 110 mmHg BP Diastolic 60 mmHg Body Temperature 98.1 F O2 % BldC Oximetry 98 % BMI (Body Mass Index) 23.2 kg/m2 04/25/2016 8:47am Height 67 inches 5'7" Weight 145.00 lb Heart Rate 64 /min BP Systolic Sitting 116 mmHg BP Diastolic Sitting 62 mmHg Respiratory Rate 14 /min BMI (Body Mass Index) 22.7 kg/m2 01/30/2016 9:35am Height 66.50 inches 5'6.50" Weight 147.00 lb Heart Rate 88 /min BP Systolic 106 mmHg BP Diastolic 68 mmHg Body Temperature 98.5 F O2 % BldC Oximetry 98 % BMI (Body Mass Index) 23.4 kg/m2 12/19/2015 9:39am Weight 152.00 lb Heart Rate 82 /min BP Systolic Sitting 104 mmHg BP Diastolic Sitting 68 mmHg Body Temperature 97.3 F O2 % BldC Oximetry 98 % 03/27/2015 11:44am Weight 147.75 lb Heart Rate 78 /min BP Systolic Sitting 110 mmHg BP Diastolic Sitting 64 mmHg Body Temperature 97.3 F O2 % BldC Oximetry 97 % 01/26/2015 7:38am Height 66.65 inches 5'6.65" Weight 147.00 lb Heart Rate 84 /min BP Systolic Sitting 105 mmHg BP Diastolic Sitting 67 mmHg Body Temperature 98.0 F O2 % BldC Oximetry 100 % BMI (Body Mass Index) 23.3 kg/m2 08/23/2014 10:16am Height 66.75 inches 5'6.75" Weight 146.50 lb Heart Rate 75 /min BP Systolic Sitting 116 mmHg BP Diastolic Sitting 64 mmHg Body Temperature 97.3 F O2 % BldC Oximetry 99 % BMI (Body Mass Index) 23.1 kg/m2 07/21/2014 1:14pm Height 66.75 inches 5'6.75" Weight 145.00 lb Heart Rate 72 /min BP Systolic Sitting 110 mmHg BP Diastolic Sitting 68 mmHg Respiratory Rate 16 /min BMI (Body Mass Index) 22.9 kg/m2 04/25/2014 1:51pm Weight 141.00 lb Heart Rate 68 /min BP Systolic Sitting 109 mmHg BP Diastolic Sitting 77 mmHg 04/06/2014 12:59pm Height 67 inches 5'7" Weight 142.00 lb Heart Rate 86 /min BP Systolic 96 mmHg BP Diastolic 68 mmHg Body Temperature 98.7 F BMI (Body Mass Index) 22.2 kg/m2 01/20/2014 11:55am Height 67 inches 5'7" Weight 139.38 lb Heart Rate 64 /min BP Systolic Sitting 108 mmHg BP Diastolic Sitting 58 mmHg Respiratory Rate 16 /min BMI (Body Mass Index) 21.8 kg/m2 12/24/2013 5:02pm Weight 143.00 lb Heart Rate 76 /min BP Systolic Sitting 118 mmHg BP Diastolic Sitting 64 mmHg 12/03/2013 10:01am Height 66.5 inches 5'6.50" Weight 141.25 lb Heart Rate 80 /min BP Systolic Sitting 100 mmHg BP Diastolic Sitting 58 mmHg Body Temperature 98.4 F BMI (Body Mass Index) 22.5 kg/m2 09/08/2013 4:21pm Weight 139.00 lb Heart Rate 72 /min BP Systolic Sitting 112 mmHg BP Diastolic Sitting 62 mmHg Body Temperature 98.4 F 06/10/2013 10:48am Weight 140.75 lb Heart Rate 96 /min BP Systolic Sitting 110 mmHg BP Diastolic Sitting 62 mmHg Body Temperature 97.9 F O2 % BldC Oximetry 98 % 02/26/2013 12:01pm Heart Rate 76 /min BP Systolic Sitting 118 mmHg BP Diastolic Sitting 60 mmHg Respiratory Rate 16 /min 02/25/2013 9:01am Height 66 inches 5'6" Weight 140.50 lb Heart Rate 89 /min BP Systolic Sitting 112 mmHg BP Diastolic Sitting 70 mmHg BMI (Body Mass Index) 22.7 kg/m2 01/21/2013 9:18am Height 66 inches 5'6" Weight 141.00 lb Heart Rate 87 /min BP Systolic Sitting 114 mmHg BP Diastolic Sitting 72 mmHg BMI (Body Mass Index) 22.8 kg/m2 Results Test Date Facility Test Result H/L Range Note Laboratory test 04/13/2018 [facility] Magnesium 2.3 mg/dL N 1.9-2.[address] [place] [address] [phone] Basic Metabolic 04/13/2018 [facility] Sodium 140 mmol/L N 135- [address] [place] [address] [phone] Potassium 4.4 mmol/L N 3.5-5.0 Chloride 105 mmol/L N 101-111 Co2 Carbon Dioxide 30 mmol/L N 22-32 Anion Gap 5 mmol/L N 2-11 Glucose 91 mg/dL N 70-100 Blood Urea Nitrogen 9 mg/dL N 6-24 Creatinine 0.68 mg/dL N 0.51-0.95 BUN/Creatinine Ratio 13.2 N 8-20 Calcium 9.6 mg/dL N 8.6-10.3 Egfr Non- 95.8 >60 Egfr 116.0 >60 2 Hemoglobin/Hematocrit 04/13/2018 [facility] Hemoglobin 12.9 N 12.0-16.[address] g/[place] [address] [phone] Hematocrit 38 % N 35-47 Laboratory test 04/13/2018 [facility] TSH (Thyroid 1.58 mcIU/mL N 0.34-5.[address] Stim Horm) [place] [address] [phone] CBC Auto Diff 06/20/2017 [facility] White Blood 6.0 10^3/uL N 3.5-10.[address] [place] [address] [phone] Red Blood Count 4.43 10^6/uL N 4.0-5.4 Hemoglobin 13.2 g/dL N 12.0-16.0 Hematocrit 39 % N 35-47 Mean Corpuscular Volume 88 fL N 80-97 Mean Corpuscular Hemoglobin 30 pg N 27-31 Mean Corpuscular HGB Conc 34 g/dL N 31-36 Red Cell Distribution Width 14 % N 10.5-15 Platelet Count 205 10^3/uL N 150-450 Mean Platelet Volume 8.8 um3 N 7.4-10.4 Abs Neutrophils 3.4 10^3/uL N 1.5-7.7 Abs Lymphocytes 2.0 10^3/uL N 1.0-4.8 Abs Monocytes 0.4 10^3/uL N 0-0.8 Abs Eosinophils 0.1 10^3/uL N 0-0.6 Abs Basophils 0 10^3/uL N 0-0.2 Abs Nucleated RBC 0 10^3/uL Granulocyte % 57.7 % N 38-83 Lymphocyte % 34.3 % N 25-47 Monocyte % 6.4 % N 0-7 Eosinophil % 0.8 % N 0-6 Basophil % 0.8 % N 0-2 Nucleated Red Blood Cells % 0 Comp Metabolic Panel 06/20/2017 [facility] Sodium 138 mmol/L Low 139-[address] [place] [address] [phone] Potassium 3.6 mmol/L N 3.5-5.0 Chloride 102 mmol/L N 101-111 Co2 Carbon Dioxide 29 mmol/L N 22-32 Anion Gap 7 mmol/L N 2-11 Glucose 101 mg/dL High 70-100 Blood Urea Nitrogen 14 mg/dL N 6-24 Creatinine 0.84 mg/dL N 0.51-0.95 BUN/Creatinine Ratio 16.7 N 8-20 Calcium 9.8 mg/dL N 8.6-10.3 Total Protein 7.4 g/dL N 6.4-8.9 Albumin 4.8 g/dL N 3.2-5.2 Globulin 2.6 g/dL N 2-4 Albumin/Globulin Ratio 1.8 N 1-3 Total Bilirubin 0.50 mg/dL N 0.2-1.0 Alkaline Phosphatase 37 U/L N 34-104 Alt 9 U/L N 7-52 Ast 13 U/L N 13-39 Egfr Non- 75.5 >60 Egfr 97.1 >60 4 Laboratory test 06/20/2017 [facility] Troponin-I (TnI) 0.01 ng/ mL <0.[address] [place] [address] [phone] Lactic Acid 0.8 mmol/L N 0.5-2.0 5 D Dimer Quantitative < 200 ng/mL N Less Than 230 6 Laboratory test 06/03/2017 [facility] Magnesium 2.2 mg/dL N 1.9-2.7 finding [address] [place] [address] [phone] Basic Metabolic 06/03/2017 [facility] Sodium 139 mmol/L N 139- 145 Panel [address] [place] [address] [phone] Potassium 3.7 mmol/L N 3.5-5.0 Chloride 106 mmol/L N 101-111 Co2 Carbon Dioxide 27 mmol/L N 22-32 Anion Gap 6 mmol/L N 2-11 Glucose 98 mg/dL N 70-100 Blood Urea Nitrogen 13 mg/dL N 6-24 Creatinine 0.77 mg/dL N 0.51-0.95 BUN/Creatinine Ratio 16.9 N 8-20 Calcium 9.4 mg/dL N 8.6-10.3 Egfr Non- 83.5 >60 Egfr 107.3 >60 7 Laboratory test 06/03/2017 [facility] TSH (Thyroid 1.41 mcIU/mL N 0.34-5.[address] Stim Horm) [place] [address] [phone] Free T4 (Free Thyroxine) 0.73 ng/dL N 0.61-1.12 CBC Auto Diff 06/03/2017 [facility] White Blood 5.1 10^3/uL N 3.5-10.[address] [place] [address] [phone] Red Blood Count 4.01 10^6/uL N 4.0-5.4 Hemoglobin 12.1 g/dL N 12.0-16.0 Hematocrit 35 % N 35-47 Mean Corpuscular Volume 87 fL N 80-97 Mean Corpuscular Hemoglobin 30 pg N 27-31 Mean Corpuscular HGB Conc 35 g/dL N 31-36 Red Cell Distribution Width 14 % N 10.5-15 Platelet Count 163 10^3/uL N 150-450 Mean Platelet Volume 9.2 um3 N 7.4-10.4 Abs Neutrophils 3.1 10^3/uL N 1.5-7.7 Abs Lymphocytes 1.6 10^3/uL N 1.0-4.8 Abs Monocytes 0.4 10^3/uL N 0-0.8 Abs Eosinophils 0 10^3/uL N 0-0.6 Abs Basophils 0 10^3/uL N 0-0.2 Abs Nucleated RBC 0 10^3/uL Granulocyte % 60.6 % N 38-83 Lymphocyte % 31.2 % N 25-47 Monocyte % 6.8 % N 0-7 Eosinophil % 0.8 % N 0-6 Basophil % 0.6 % N 0-2 Nucleated Red Blood Cells % 0 Laboratory test 01/25/2017 [facility] Rapid Strep Negative Negative [address] [place] [address] [phone] Basic Metabolic 05/13/2016 [facility] Sodium 138 mmol/L N 133- [address] [place] [address] [phone] Potassium 4.1 mmol/L N 3.5-5.0 Chloride 103 mmol/L N 101-111 Co2 Carbon Dioxide 30 mmol/L N 22-32 Anion Gap 5 mmol/L N 2-11 Glucose 101 mg/dL High 70-100 Blood Urea Nitrogen 17 mg/dL N 6-24 Creatinine 0.84 mg/dL N 0.51-0.95 BUN/Creatinine Ratio 20.2 High 8-20 Calcium 9.2 mg/dL N 8.6-10.3 Egfr Non- 75.9 N >60 Egfr 97.6 N >60 9 CBC Auto Diff 01/30/2016 [facility] White Blood 4.8 10^3/uL N 3.5-10.[address] [place] [address] [phone] Red Blood Count 4.16 10^6/uL N 4.0-5.4 Hemoglobin 12.0 g/dL N 12.0-16.0 Hematocrit 36 % N 35-47 Mean Corpuscular Volume 87 fL N 80-97 Mean Corpuscular Hemoglobin 29 pg N 27-31 Mean Corpuscular HGB Conc 33 g/dL N 31-36 Red Cell Distribution Width 13 % N 10.5-15 Platelet Count 215 10^3/uL N 150-450 Mean Platelet Volume 10 um3 N 7.4-10.4 Abs Neutrophils 2.7 10^3/uL N 1.5-7.7 Abs Lymphocytes 1.4 10^3/uL N 1.0-4.8 Abs Monocytes 0.4 10^3/uL N 0-0.8 Abs Eosinophils 0.3 10^3/uL N 0-0.6 Abs Basophils 0 10^3/uL N 0-0.2 Abs Nucleated RBC 0 10^3/uL N Granulocyte % 57.0 % N 38-83 Lymphocyte % 29.0 % N 25-47 Monocyte % 7.7 % N 1-9 Eosinophil % 5.4 % N 0-6 Basophil % 0.9 % N 0-2 Nucleated Red Blood Cells % 0 N Laboratory test 12/19/2015 [facility] Culture SEE RESULT [address] Throat BELOW [place], [place] [id number] [phone] Laboratory test 03/27/2015 [facility] TSH (Thyroid 1.08 ?IU/mL N 0.34-[address] Stim Horm) .60 [place] [address] [phone] Troponin-I (TnI) 0.00 ng/mL N <0.03 11 CKMB 03/27/2015 [facility] CKMB ng/mL 1.2 ng/mL N 0.6-6.[address] [place] [address] [phone] Laboratory test 02/17/2015 [facility] Vitamin D 29.3 ng/mL Low 30-[address] Total 25(Oh) [place], [place] [address] [phone] Laboratory test 02/17/2015 [facility] Judy Negative N Negative finding [address] ([place] [address] Antibodies) [phone] Rheumatoid Factor <15 IU/mL N <15 12 Erythrocyte Sed Rate 14 mm/Hr N 0-14 CBC Auto Diff 02/17/2015 [facility] White Blood 4.4 10^3/uL N 3.5-10.[address] [place] [address] [phone] Red Blood Count 4.39 10^6/uL N 4.0-5.4 Hemoglobin 12.7 g/dL N 12.0-16.0 Hematocrit 39 % N 35-47 Mean Corpuscular Volume 89 fL N 80-97 Mean Corpuscular Hemoglobin 29 pg N 27-31 Mean Corpuscular HGB Conc 33 g/dL N 31-36 Red Cell Distribution Width 13 % N 10.5-15 Platelet Count 175 10^3/uL N 150-450 Mean Platelet Volume 9 um3 N 7.4-10.4 Abs Neutrophils 2.7 10^3/uL N 1.5-7.7 Abs Lymphocytes 1.3 10^3/uL N 1.0-4.8 Abs Monocytes 0.3 10^3/uL N 0-0.8 Abs Eosinophils 0.1 10^3/uL N 0-0.6 Abs Basophils 0 10^3/uL N 0-0.2 Abs Nucleated RBC 0.01 10^3/uL N Granulocyte % 61.4 % N 38-83 Lymphocyte % 28.7 % N 25-47 Monocyte % 7.3 % N 1-9 Eosinophil % 1.8 % N 0-6 Basophil % 0.8 % N 0-2 Nucleated Red Blood Cells % 0.1 N Laboratory test 01/26/2015 [facility] HPV Rna Negative N Negative [address] Ww/[place] [address] Genotype [phone] Cytology SEE RESULT BELOW 14 Ua Routine 01/26/2015 [facility] Ua Specific [place] 1.010 Ua PH 5 Ua Color yellow Ua Appera clear Ua WBC negative Ua Protein negative Ua Glucose negative Ua Ketones negative Ua Bilirubin negative Ua Urobilinogen normal Ua Nitrite negative Ua Occult Blood trace Laboratory test 01/26/2015 [facility] Urine Culture And SEE RESULT [address] Sensitivities BELOW [place], [place] [id number] [phone] Comp Metabolic 01/06/2015 [facility] Sodium 137 mmol/L N 133- 1 [address] [place], [place] [id number] [phone] Potassium 3.9 mmol/L N 3.5-5.0 Chloride 104 mmol/L N 101-111 Co2 Carbon Dioxide 30 mmol/L N 22-32 Anion Gap 3 mmol/L N 2-11 Glucose 93 mg/dL N 70-100 Blood Urea Nitrogen 10 mg/dL N 6-24 Creatinine 0.78 mg/dL N 0.51-0.95 BUN/Creatinine Ratio 12.8 N 8-20 Calcium 9.0 mg/dL N 8.6-10.3 Total Protein 6.6 g/dL N 6.4-8.9 Albumin 4.4 g/dL N 3.2-5.2 Globulin 2.2 g/dL N 2-4 Albumin/Globulin Ratio 2.0 N 1-3 Total Bilirubin 0.60 mg/dL N 0.2-1.0 Alkaline Phosphatase 40 U/L N 34-104 Alt 8 U/L N 7-52 Ast 13 U/L N 13-39 Egfr Non- 83.1 N >60 Egfr 106.9 N >60 17 Lipid Profile 01/06/2015 [facility] Triglycerides 71 mg/dL N 18 (Trig/Chol/HDL) [address] [place] [address] [phone] Cholesterol 127 mg/dL N 19 HDL Cholesterol 53.9 mg/dL N 20 LDL Cholesterol 59 mg/dL N 21 Laboratory test 04/25/2014 [facility] TSH (Thyroid 1.07 IU/mL N 0.34-5.[address] [place] [address] Horm) [phone] CBC Auto Diff 04/25/2014 [facility] White Blood 5.8 N 4.8- 10.[address] Count 10^3/uL [place], [place] [address] [phone] Red Blood Count 4.28 10^6/uL N 4.0-5.4 Hemoglobin 13.0 g/dL N 12.0-16.0 Hematocrit 39 % N 35-47 Mean Corpuscular Volume 90 fL N 80-97 Mean Corpuscular Hemoglobin 30 pg N 27-31 Mean Corpuscular HGB Conc 34 g/dL N 31-36 Red Cell Distribution Width 14 % N 10.5-15 Platelet Count 180 10^3/uL N 150-450 Mean Platelet Volume 9 um3 N 7.4-10.4 Abs Neutrophils 3.3 10^3/uL N 1.5-7.7 Abs Lymphocytes 2.0 10^3/uL N 1.0-4.8 Abs Monocytes 0.3 10^3/uL N 0-0.8 Abs Eosinophils 0.1 10^3/uL N 0-0.6 Abs Basophils 0 10^3/uL N 0-0.2 Abs Nucleated RBC 0 10^3/uL N Granulocyte % 56.6 % N 38-83 Lymphocyte % 34.9 % N 25-47 Monocyte % 6.0 % N 1-9 Eosinophil % 1.8 % N 0-6 Basophil % 0.7 % N 0-2 Nucleated Red Blood Cells % 0.1 N Iron & Iron Binding 02/25/2014 [facility] Iron 85 g/dL N 50- [address] [place] [address] [phone] Unsaturated Iron Binding 314 g/dL N Total Iron Binding Capacity 399 g/dL N 250-450 % Iron Saturation 21 % N 15-55 CBC Auto 02/25/2014 [facility] White Blood 4.0 10^3/uL Low 4.8 -10.[address] [place] [address] [phone] Red Blood Count 4.21 10^6/uL N 4.0-5.4 Hemoglobin 12.4 g/dL N 12.0-16.0 Hematocrit 38 % N 35-47 Mean Corpuscular Volume 90 fL N 80-97 Mean Corpuscular Hemoglobin 29 pg N 27-31 Mean Corpuscular HGB Conc 33 g/dL N 31-36 Red Cell Distribution Width 14 % N 10.5-15 Platelet Count 165 10^3/uL N 150-450 Mean Platelet Volume 9 um3 N 7.4-10.4 Abs Neutrophils 2.3 10^3/uL N 1.5-7.7 Abs Lymphocytes 1.3 10^3/uL N 1.0-4.8 Abs Monocytes 0.3 10^3/uL N 0-0.8 Abs Eosinophils 0.1 10^3/uL N 0-0.6 Abs Basophils 0 10^3/uL N 0-0.2 Abs Nucleated RBC 0 10^3/uL N Granulocyte % 57.2 % N 38-83 Lymphocyte % 31.7 % N 25-47 Monocyte % 7.3 % N 1-9 Eosinophil % 3.0 % N 0-6 Basophil % 0.8 % N 0-2 Nucleated Red Blood Cells % 0.1 N Laboratory test 01/20/2014 Magnesium 2.3 mg/dL N 1.9-2.7 finding CBC Auto Diff 12/31/2013 [facility] White Blood 4.2 10^3/uL Low 4.8-10.[address] [place] [address] [phone] Red Blood Count 4.07 10^6/uL N 4.0-5.4 Hemoglobin 11.6 g/dL Low 12.0-16.0 Hematocrit 36 % N 35-47 Mean Corpuscular Volume 88 fL N 80-97 Mean Corpuscular Hemoglobin 29 pg N 27-31 Mean Corpuscular HGB Conc 33 g/dL N 31-36 Red Cell Distribution Width 14 % N 10.5-15 Platelet Count 168 10^3/uL N 150-450 Mean Platelet Volume 9 um3 N 7.4-10.4 Abs Neutrophils 2.0 10^3/uL N 1.5-7.7 Abs Lymphocytes 1.7 10^3/uL N 1.0-4.8 Abs Monocytes 0.4 10^3/uL N 0-0.8 Abs Eosinophils 0.1 10^3/uL N 0-0.6 Abs Basophils 0 10^3/uL N 0-0.2 Abs Nucleated RBC 0 10^3/uL N Granulocyte % 47.0 % N 38-83 Lymphocyte % 40.0 % N 25-47 Monocyte % 10.4 % High 1-9 Eosinophil % 1.6 % N 0-6 Basophil % 1.0 % N 0-2 Nucleated Red Blood Cells % 0.1 N Throat-Beta Strept 12/06/2013 [facility] Throat Beta (SEE NOTE) 22 [address] [facility] [place] [address] [phone] Laboratory test 05/11/2013 [facility] Vitamin B12 398 pg/mL N 180-91 23 finding [address] [facility] [place] [address] [phone] C Reactive Protein < 1.00 mg/L N < 5.00 24 Lyme Disease Serology Negative N Negative 25 Judy (Anti-Nuclear AB) Screen Negative N Negative Lipid Profile 01/27/2013 [facility] Triglycerides 58 mg/dL 40 -200 (Trig/Chol/HDL) [address] [place] [address] [phone] Cholesterol 132 mg/dL Less than 200 HDL Cholesterol 62 mg/dL High 40-60 26 Cholesterol/HDL Ratio 2.1 Average 1-4.44 LDL Cholesterol 58.4 Less Than 100 27 Comp Metabolic Panel 01/27/2013 [facility] Sodium 137 mmol/L 133-145 [address] [place] [address] [phone] Potassium 4.0 mmol/L 3.5-5.0 Chloride 104 mmol/L 101-111 Co2 Carbon Dioxide 28.0 mmol/L 22-32 Anion Gap 5.0 mmol/L 2-11 Glucose 76 mg/dL 70-100 Blood Urea Nitrogen 8 mg/dL 6-24 Creatinine 0.80 mg/dL 0.50-1.40 BUN/Creatinine Ratio 10.0 8-20 Calcium 8.9 mg/dL 8.1-9.9 Total Protein 6.4 g/dL 6.2-8.1 Albumin 4.3 g/dL 3.6-5.4 Globulin 2.1 g/dL 2-4 Albumin/Globulin Ratio 2.0 1-3 Total Bilirubin 0.9 mg/dL 0.4-1.5 Alkaline Phosphatase 44 U/L 30-110 Alt 11 U/L Low 14-54 Ast 15 U/L 12-42 Egfr Non- 81.6 >60 Egfr 105.0 >60 28 CBC Auto Diff 01/27/2013 [facility] White Blood 5.4 10^3/uL 4.8-10.[address] [place] [address] [phone] Red Blood Count 4.12 10^6/uL 4.0-5.4 Hemoglobin 12.2 g/dL 12.0-16.0 Hematocrit 36 % 35-47 Mean Corpuscular Volume 87 fL 80-97 Mean Corpuscular Hemoglobin 30 pg 27-31 Mean Corpuscular HGB Conc 34 g/dL 31-36 Red Cell Distribution Width 13 % 10.5-15 Platelet Count 178 10^3/uL 150-450 Mean Platelet Volume 10 um3 7.4-10.4 Abs Neutrophils 3.8 10^3/uL 1.5-7.7 Abs Lymphocytes 1.0 10^3/uL 1.0-4.8 Abs Monocytes 0.5 10^3/uL 0-0.8 Abs Eosinophils 0.1 10^3/uL 0-0.6 Abs Basophils 0 10^3/uL 0-0.2 Abs Nucleated RBC 0.01 10^3/uL Granulocyte % 70.5 % 38-83 Lymphocyte % 18.5 % Low 25-47 Monocyte % 9.1 % High 1-9 Eosinophil % 1.4 % 0-6 Basophil % 0.5 % 0-2 Nucleated Red Blood Cells % 0.1 1 Copy Result to: CATHIE PALMA ([id number]) 2 Because ethnic data is not always readily available, this report includes an eGFR for both -Americans and non- Americans. The National Kidney Disease Education Program (NKDEP) does not endorse the use of the MDRD equation for patients that are not between the ages of 18 and 70, are , have extremes of body size, muscle mass, or nutritional status, or are non- or non-. According to the National Kidney Foundation, irrespective of diagnosis, the stage of the disease is based on the level of kidney function: Stage Description GFR(mL/min/1.73 m(2)) 1 Kidney damage with normal or decreased GFR 90 2 Kidney damage with mild decrease in GFR 60-89 3 Moderate decrease in GFR 30-59 4 Severe decrease in GFR 15-29 5 Kidney failure <15 (or dialysis) 3 Copy Result to: CATHIE PALMA ([id number]) 4 Because ethnic data is not always readily available, this report includes an eGFR for both -Americans and non- Americans. The National Kidney Disease Education Program (NKDEP) does not endorse the use of the MDRD equation for patients that are not between the ages of 18 and 70, are , have extremes of body size, muscle mass, or nutritional status, or are non- or non-. According to the National Kidney Foundation, irrespective of diagnosis, the stage of the disease is based on the level of kidney function: Stage Description GFR(mL/min/1.73 m(2)) 1 Kidney damage with normal or decreased GFR 90 2 Kidney damage with mild decrease in GFR 60-89 3 Moderate decrease in GFR 30-59 4 Severe decrease in GFR 15-29 5 Kidney failure <15 (or dialysis) 5 [facility] Severe Sepsis and Septic Shock Management Bundle Measure requires all lactic acids initially measuring >2.0 mmol/L be repeated. 6 Please note: The following may produce a false positive D Dimer test: - Rheumatoid factor greater than 60 IU/ml - Plasma hemoglobin greater than 0.05 gm/dl - Bilirubin greater than 50 mg/dl - Lipids greater than 1000 mg/dl - FDP greater than 20 ug/ml 7 Because ethnic data is not always readily available, this report includes an eGFR for both -Americans and non- Americans. The National Kidney Disease Education Program (NKDEP) does not endorse the use of the MDRD equation for patients that are not between the ages of 18 and 70, are , have extremes of body size, muscle mass, or nutritional status, or are non- or non-. According to the National Kidney Foundation, irrespective of diagnosis, the stage of the disease is based on the level of kidney function: Stage Description GFR(mL/min/1.73 m(2)) 1 Kidney damage with normal or decreased GFR 90 2 Kidney damage with mild decrease in GFR 60-89 3 Moderate decrease in GFR 30-59 4 Severe decrease in GFR 15-29 5 Kidney failure <15 (or dialysis) 8 [employer] Practitioner: [id number] 9 Because ethnic data is not always readily available, this report includes an eGFR for both -Americans and non- Americans. The National Kidney Disease Education Program (NKDEP) does not endorse the use of the MDRD equation for patients that are not between the ages of 18 and 70, are , have extremes of body size, muscle mass, or nutritional status, or are non- or non-. According to the National Kidney Foundation, irrespective of diagnosis, the stage of the disease is based on the level of kidney function: Stage Description GFR(mL/min/1.73 m(2)) 1 Kidney damage with normal or decreased GFR 90 2 Kidney damage with mild decrease in GFR 60-89 3 Moderate decrease in GFR 30-59 4 Severe decrease in GFR 15-29 5 Kidney failure <15 (or dialysis) 10 SEE RESULT BELOW Name: CARMENZA LUNA : [address]: Francisco Dent NP Acct: [id number] Unit: [id number] AGE: 40 Location: [facility] Re12/19/15 SEX: F Status: REG REF SPEC: [id number] ANDREA: 12/19/[address]: Francisco Dent NP REQ: [id number] RECD: 12/20/15 STATUS: COMP _ SOURCE: THROAT SPDESC: ORDERED: Throat Culture COMMENTS: [id number] Procedure Result Reported Site Throat Culture Final 12/22/15- 0930 ML Organism 1 NORMAL MARIO Quantity 3+ Throat cultures are clinically indicated to detect the presence of group A strep, arcanobacterium and yeast. In certain cases, predominating organisms will be reported. * ML - [facility] ([facility]) . END OF REPORT * ML=Testing performed at Main Lab DEPARTMENT OF PATHOLOGY, [address] [place] [address] Nathan Hay M.D. Director [facility] # [id number] 11 Reference Range and Interpretation: TnI (ng/mL) Interpretation Less Than 0.03 ng/mL Not supportive of diagnosis of VT 0.03 - 0.50 ng/mL Indeterminate: suggest serial studies if clinically indicated. Greater than 0.5 ng/mL Consistent with diagnosis of VT 12 Test Performed by: [place] [address] Construction Representative: Kasi Collier II, M.D., Ph.D. 13 The high-risk HPV types detected by the assay include: 16, 18, 31, 33, 35, 39, 45, 51, 52, 56, 58, 59, 66, and 68. 14 SEE RESULT BELOW Name: CARMENZA LUNA : [address]: Becki Cruz MD Acct: [id number] Unit: [id number] AGE: 39 Location: [facility] Re01/26/15 SEX: F Status: REG REF SPEC: [id number] ANDREA: 01/26/15-0844 [facility] DR: Becki Cruz MD REQ: [id number] RECD: 01/26/15 STATUS: SOUT _ ORDERED: IMAGE ANALYSIS, HPV/Thin Prep, HPV 16/18 GENE FINAL DIAGNOSIS Negative for Intraepithelial lesion or Malignancy A. Ectocervical/Endocervical Specimen Adequacy: Satisfactory of evaluation Transformation zone component identified Patient Information: HPV: High risk HPV RNA testing regardless of pap results. HPV 16/18 Genotype for HPV pos Actual Specimen Date: 01/26/15 ?: N Post Menopausal?: N Previous Abnormal Pap Smears?:N Date Time Test Result Flag (u) Normal Range 01/26/15 0844 HPV RNA RFLX GE Negative Negative The high-risk HPV types detected by the assay include: 16, 18, 31, 33, 35, 39, 45, 51, 52, 56, 58, 59, 66, and 68. Signed (signature on file) KEENAN Bueno(ASCP) 01/27 3534 This Pap test was evaluated with the assistance of the Madeira TherapeuticsPrep Test Imaging System. Due to cytologic findings at the trade economist microscope, comprehensive manual rescreening by a Transonic Engineer may be required. The Pap Smear is a screening test designed to aid in the detection of premalignant and malignant conditions of the uterine cervix. It is not a diagnostic procedure and should not be used as the sole means of detecting cervical cancer. Both false- positive and false- negative reports do occur. Depending on your risk status, a Pap smear should be obtained and evaluated every 1-3 years. END OF REPORT * ML=Testing performed at Main Lab DEPARTMENT OF PATHOLOGY, [address] [place] [address] Nathan Hay M.D. Director [facility] # [id number] 15 SEE RESULT BELOW Name: CARMENZA LUNA : [address]: Becki Cruz MD Acct: [id number] Unit: [id number] AGE: 39 Location: [facility] Re01/26/15 SEX: F Status: REG REF SPEC: [id number] ANDREA: 01/26/15-[address]: Becki Cruz MD REQ: [id number] RECD: 01/26/15 STATUS: COMP _ SOURCE: [facility]: ORDERED: Urine Culture Procedure Result Reported Site Urine Culture Final 01/28/15913 ML No Growth (<1,000 CFU/mL) * ML - [facility] ([facility]) . END OF REPORT * ML=Testing performed at Main Lab DEPARTMENT OF PATHOLOGY, [address] [place] [address] Nathan Hay M.D. Director [facility] # [id number] Because ethnic data is not always readily available, this report includes an eGFR for both -Americans and non- Americans. The National Kidney Disease Education Program (NKDEP) does not endorse the use of the MDRD equation for patients that are not between the ages of 18 and 70, are , have extremes of body size, muscle mass, or nutritional status, or are non- or non-. According to the National Kidney Foundation, irrespective of diagnosis, the stage of the disease is based on the level of kidney function: Stage Description GFR(mL/min/1.73 m(2)) 1 Kidney damage with normal or decreased GFR 90 2 Kidney damage with mild decrease in GFR 60-89 3 Moderate decrease in GFR 30-59 4 Severe decrease in GFR 15-29 5 Kidney failure <15 (or dialysis) 18 Desirable <150 Borderline high 150-199 High 200-499 Very High >500 19 Desirable <200 Borderline high 200-239 High >239 20 Low <40 Desirable: 40-60 High: >60 21 Desirable: <100 mg/dL Near Optimal: 100-129 mg/dL Borderline High: 130-159 mg/dL High: 160-189 mg/dL Very High: >189 mg/dL 22 RUN DATE: 12/09/13 [facility] LIVE PAGE 1 RUN TIME: [address] [place] [address] Specimen Inquiry Name: CARMENZA LUNA : [address]: Shawn Benavides MD Acct: [id number] Unit: [id number] AGE: 38 Location: [facility] Re12/06/13 SEX: F Status: DEP ER SPEC: [id number] ANDREA: 12/06/[address]: Carina ISLAS REQ: [id number] RECD: 12/07/13 STATUS: LULU NUÑEZ DR: Becki Benavides MD _ SOURCE: THROAT SPDES: ORDERED: Throat Beta Str Procedure Result Verified Site Throat Beta Strep Culture Final 12/09/13- 0838 ML Negative For Group A Beta Streptococcus END OF REPORT * ML=Testing performed at Main Lab DEPARTMENT OF PATHOLOGY, [address] [place] [address] Nathan Hay M.D. Director [facility] # [id number] 23 Normal Range 180 to 914 Indeterminate Range 145 to 180 Deficient Range <145 24 Acute inflammation: >10.00 25 Serologic response to B. burgdorferi infection is not detected, but cannot rule out early infection during which low or undetectable antibody levels to B. burgdorferi may be present. If clinically indicated, a new serum specimen should be submitted in 7-14 days. Test Performed by: [facility] [address] [address] Construction Representative: Will Curran III, M.D. 26 HDL Interpretation: Undesirable: High Risk: Less than 40 mg/dL Desirable: Low Risk: Greater than 60 mg/dL 27 LDL Interpretation: Low Risk Optimal Level: LDL Less than 100 mg/dL Near or Above Optimal: LDL 100-129 mg/dL Borderline High Risk: LDL 130-159 mg/dL High Risk: LDL 160-189 mg/dL Very High Risk: LDL Greater than 189 mg/dL 28 Because ethnic data is not always readily available, this report includes an eGFR for both -Americans and non- Americans. The National Kidney Disease Education Program (NKDEP) does not endorse the use of the MDRD equation for patients that are not between the ages of 18 and 70, are , have extremes of body size, muscle mass, or nutritional status, or are non- or non-. According to the National Kidney Foundation, irrespective of diagnosis, the stage of the disease is based on the level of kidney function: Stage Description GFR(mL/min/1.73 m(2)) 1 Kidney damage with normal or decreased GFR 90 2 Kidney damage with mild decrease in GFR 60-89 3 Moderate decrease in GFR 30-59 4 Severe decrease in GFR 15-29 5 Kidney failure <15 (or dialysis) Procedures Date Code Description Status 04/14/2018 61706 Holter Monitor Review (24 hr)dr mcconnell & interp only Completed 04/14/2018 83572 EKG Tracing & Interpretation Completed 04/13/2018 62318 ECG Monitor/Recording W/Visual Superimposition Scanning Completed 04/13/2018 50453 EKG Tracing & Interpretation Completed 11/04/2017 17139784 Mammogram Completed 08/26/2017 52628 Stress Test Completed 08/11/2017 61381 EKG Tracing & Interpretation Completed 06/12/2017 61253 Holter Monitor Review (24 hr)dr mcconnell & interp only Completed 06/10/2017 36477 ECG Monitor/Recording W/Visual Superimposition Scanning Completed 06/06/2017 30741 ECHO Transthoracic, Real-Time 2D With Doppler And Color Completed Flow 06/06/2017 18895 ECHO Transthoracic, Real-Time 2D With Doppler And Color Completed Flow 03/27/2015 62029 EKG Tracing & Interpretation Completed 04/28/2014 06126 Stress Test Completed 04/11/2014 60291 Holter Monitor Review (24 hr)dr mcconnell & humble only Completed 04/06/2014 99463 EKG Tracing & Interpretation Completed 05/11/2013 82031 Nerve Conduction 11-12 Studies Completed Encounters Type Date Location Provider Dx Diagnosis Office Visit 10/29/2017 [facility] Hodan Spangler, Z00.00 Encntr for 11:10a Medicine - M.DOli general adult [place] medical exam w/o abnormal findings Z13.1 Encounter for screening for diabetes mellitus Z12.31 Encntr screen mammogram for malignant neoplasm of breast Z91.030 Bee allergy status Office Visit 09/26/2017 8:40a [facility] Cathie Palma, G90.4 Autonomic Of [facility] M.[place]. dysreflexia Z82.49 Family hx of ischem heart dis and oth dis of the circ sys Office Visit 08/11/2017 2:10p [facility] Cathie Palma, R07.9 Chest pain, Of [facility] M.D. unspecified Z82.49 Family hx of ischem heart dis and oth dis of the circ sys Office Visit 06/18/2017 4:20p [facility] Javier Low R07.9 Chest pain, Josiah Sy M.D. unspecified [place] R00.2 Palpitations Office Visit 06/03/2017 2:40p [facility] Javier Low R07.9 Chest pain, Josiah Sy M.D. unspecified [place] R53.83 Other fatigue R00.2 Palpitations Office Visit 06/03/2017 Gillian Sen G43.909 Migraine, unsp, 8:30a Neurologic Francis Brooks not intractable, Services Of [facility] without status migrainosus R07.9 Chest pain, unspecified Office Visit 11/05/2016 Gillian Ruiz G43.909 Migraine, unsp, 8:45a Neurologic Francis Barlow not intractable, Services Of [facility] without status migrainosus G45.3 Amaurosis fugax Office Visit 05/16/2016 10:50a [facility] Hodan Spangler, Z00.00 Encntr for Medicine - M.D. general adult [facility] medical exam w/o abnormal findings Z91.030 Bee allergy status Office Visit 04/25/2016 Gillian Ruiz M53.83 Other specified 8:45a Neurologic Francis Bralow dorsopathies, Services Of [facility] cervicothoracic region R20.2 Paresthesia of skin G43.909 Migraine, unsp, not intractable, without status migrainosus Office Visit 01/30/2016 9:40a [facility] Francisco Dent J06.9 Acute upper Medicine - MANAGER CAR respiratory [place] infection, unspecified Office Visit 12/19/2015 9:40a [facility] Francisco Dent J02.9 Acute pharyngitis, Medicine - MANAGER CAR unspecified [place] Office Visit 03/27/2015 11:40a [facility] Francisco Dent R07.9 Chest pain, Medicine - MANAGER CAR unspecified [place] F41.9 Anxiety disorder, unspecified Office Visit 01/26/2015 7:40a [facility] Becki Cruz, Z12.31 Encntr screen Medicine - M.DOli mammogram for [place] malignant neoplasm of breast L71.9 Rosacea, unspecified Z12.4 Encounter for screening for malignant neoplasm of cervix R21 Rash and other nonspecific skin eruption Z00.01 Encounter for general adult medical exam w abnormal findings Office Visit 08/23/2014 10:30a [facility] Kaden Vasquez, 680.0 Carbuncle & Medicine - MANAGER CAR [place] Face [place] Office Visit 07/21/2014 1:00p [place] Marianne Ruiz 782.0 Skin Sensation Services Of [facility] Marni Barlow M.D. 723.8 Cervical Syndromes Not Elsewhere Class Office Visit 04/25/2014 2:00p [facility] Francisco Dent NP 786.50 Pain Chest Medicine - Unspec [place] 785.1 Palpitations Office Visit 04/06/2014 1:00p [facility] Francisco Dent 786.59 Pain Chest Other Medicine - MANAGER CAR [place] Office Visit 01/20/2014 11:45a [place] Marianne Ruiz 374.44 Sensory Disorder Services Of Yudith Barlow M.D. 281.9 Anemia Deficiency Unspec Office Visit 12/24/2013 4:40p [facility] Becki Cruz, 307.81 Headache Medicine - MOliD. Tension [place] 847.1 Sprains & Strains Thoracic 847.0 Sprains & Strains Neck 790.6 Abnormal Blood Chemistry Other Office Visit 12/03/2013 10:00a [facility] Jalen Gay, MANAGER CAR 729.5 Pain In Limb Medicine - [place] 782.1 Rash & Other Nonspec Skin Eruption 374.44 Sensory Disorder V04.81 Need For Prophylactic Vaccination & Inoculation/Influenza 379.90 Eye Disorder Unspec Office Visit 09/08/2013 4:20p [facility] Liberty Philip, 386.11 Vertigo Benign Medicine - N.P. Paroxysmal [place] Position Office Visit 06/10/2013 10:50a [facility] Hodan 461.1 Sinusitis Acute Medicine - Francis Spangler Frontal [place] Office Visit 02/26/2013 12:00p [place] Neurologic Elvia Ruiz 728.87 Muscle Weakness Services Of [facility] Francis Barlow Generalized 782.0 Skin Sensation Disturbance Office Visit 02/25/2013 9:00a [facility] Becki Cruz, 307.81 Headache Medicine - [place] Tension [place] 782.0 Skin Sensation Disturbance Office Visit 01/21/2013 9:00a [facility] Becki Cruz, 307.81 Headache Medicine - [place] Tension [place] 611.79 Breast Signs & Symptoms Other 300.02 Anxiety Disorder Generalized V17.49 Family HX Of Other Cardiovascular Diseases Plan of Treatment Future Appointment(s):11/02/2018 9:10 am - Hodan Spangler M.D. at [facility] Internal Medicine - Gvypvlwxk93/29/2019 - Cathie Palma M.D.R07.89 Other chest painComments:Current fluttering I am not sure of the etiology.No evidence of serious rhythm issues.R00.2 PalpitationsComments:Rare (7) ectopic beats.They don 't correlate with your symptoms.G90.4 Autonomic dysreflexiaReferral:Willie Bruce MD, Sports Medicine:Family prFollow up:If/when able to print information on orthostatic hypotension and POTs please do so and mail to the patient.
[2018-05-25 16:56] VITALS: BP 109/75
== END 2018-05-25 17:48 | disposition home or self-care (01) ==
LOC: UCEAST 16:35
DX: L08.9 Local infection of the skin and subcutaneous tissue, unspecified (principal); Z86.14 Personal history of Methicillin resistant Staphylococcus aureus infection; Z88.2 Allergy status to sulfonamides; Z91.030 Bee allergy status
CPT/HCPCS: 99211; G0463

== ENCOUNTER 2018-11-20 09:09 | Emergency (ER) | payer BC ==
--- OUTSIDE RECORDS SUMMARY | 2018-11-20 09:26 | XMS REPORT | Continuity of Care Document ---
:1975 External Reference #:[id number] Author Name MamieMAMI IniguezP-Cde (transmitted by agent of provider Elodia Mishra) Address [address] [place] [address], [place] [address] Care Team Providers Name Role Phone Physical [facility] - Care Team Information Certified Lactation Counselor [phone] Physical Therapist Hodan Spangler MD - Internal Care Team Information Certified Lactation Counselor [phone] Medicine Cathie Palma MD - Cardiovascular Care Team Information Certified Lactation Counselor Disease Problems Active Problems Provider Date Generalized anxiety disorder Becki Cruz M.D. Onset: 02/16/2013 Skin sensation disturbance Elvia Barlow M.D. Onset: 07/21/2014 Ulnar neuropathy Elvia Barlow M.D. Onset: 07/21/2014 Migraine Hodan Spangler M.D. Onset: 05/16/2016 Cervical syndrome Hodan Spangler M.D. Onset: 05/16/2016 Allergic reaction to bee sting Hodan Spangler M.D. Onset: 05/16/2016 Rosacea Hodan Spangler M.D. Onset: 05/16/2016 Amaurosis fugax Mckinley Brooks M.D. Onset: 06/03/2017 Autonomic dysreflexia Cathie Palma M.D. 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 Onset: 2017 other diseases of the circulatory system Social History Type Date Description Comments Sex Unknown Tobacco Use Start: Unknown End: Exposer to second hand Father smoked Unknown smmoke as a kid ETOH Use Occasionally consumes alcohol Tobacco Use Start: Unknown Patient has never smoked Recreational Drug Use Denies Drug Use Smoking Status Reviewed: 10/15/18 Patient has never smoked Exercise Type/Frequency Exercises rarely Allergies, Adverse Reactions, Alerts Active Allergies Reaction Severity Comments Date Bee Sting Unknown 01/21/2013 Sulfa Antibiotics 09/08/2013 Medications Active Medications SIG Qnty Indications Ordering Date Provider Epipen 2-Hector use as directed for 1units Hodan Spangler, 08/23/2014 severe anaphylaxis M.D. 0.3mg/0.3ML Solution ( exposure to bee Auto-Inject sting ) Vitamin D3 1 by mouth every Unknown Gummies day in winter Ibuprofen 2 tablet po as Unknown 200mg needed for pain Vitamin K2 1 by mouth every Unknown 100mcg day Capsules Black as needed Unknown Elderberry(Gaytan-Killian wer) 575mg Capsules Immunizations CPT Code Status Date Vaccine Lot # [id number] Given 03/01/2017 Influenza Virus Vaccine, Quadrivalent, Split, Preservative Free 62489 Given 12/23/2014 Flu Mist Vaccine, Live For Intranasal Use [id number] Given 12/03/2013 Flu Vaccine Split Virus Preservative Free For Indiv [id number] [id number] Older [id number] Given 05/19/2008 Tdap - Tetanus/Diptheria/Acellular Pertussis 91255 Refused 04/13/2018 Influenza Virus Vaccine, Quadrivalent, Split, Preservative Free Vital Signs Date Vital Result Comment 10/15/2018 9:01am Height 67 inches 5'7" Weight 149.00 lb Heart Rate 74 /min BP Systolic 104 mmHg BP Diastolic 68 mmHg O2 % BldC Oximetry 100 % BMI (Body Mass Index) 23.3 kg/m2 Last Menstrual Period [id number] 05/08/2018 8:35am Height 67 inches 5'7" Weight 154.38 lb with boots Heart Rate 82 /min BP Systolic Sitting 122 mmHg BP Diastolic Sitting 78 mmHg BP Systolic Standing 118 mmHg BP Diastolic Standing 78 mmHg BMI (Body Mass Index) 24.2 kg/m2 Ejection Fraction 60-65% 06/06/17 Echo Results Description No Information Available Procedures Date Code Description Status 11/04/2017 [id number] Mammogram Completed Medical Devices Description No Information Available Encounters Type Date Location Provider Dx Diagnosis Office Visit 05/08/2018 [facility] Cathie Palma, R07.89 Other chest pain 8:40a Of [facility] AT [facility] [place] R00.2 Palpitations 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 05/08/2018 R00.2 Palpitations Cathie Palma M.D. 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 Plan of Treatment Future Appointment(s):10/23/2018 8:30 am - Boby Mccall at [facility]11/02/2018 9:10 am - Hodan Spangler M.D. at [facility] Internal Medicine - [facility]10/15/2018 - Francisco MccalleN83.201 Unspecified ovarian cyst, right sideFollow up:After ultrasound - discuss contraception options Functional Status Description No Information Available Mental Status Description No Information Available Referrals Refer to Reason for Referral Status Appt Date Willie Bruce MD Mild dysautonemia, BP blunted exercising, Sent previously big runner, afraid recently. Please assist with program/reassurance on regimen to improve vascular tone, get back to prior level of running. The patient notes regular lightheaded (OS) and perceives HR is high. [address] [facility] [address] [place] [address] [phone]
--- OUTSIDE RECORDS SUMMARY | 2018-11-20 09:26 | XMS REPORT | Continuity of Care Document ---
:1975 External Reference #:[id number] Author Name Hodan Spangler M.D. (transmitted by agent of provider Christa Savage) Address [address] [facility], [place] [address] Care Team Providers Name Role Phone Physical Therapy [facility] [place] - Care Team Information Psychologist Personnel Physical Therapist Hodan Spangler MD - Internal Care Team Information Psychologist Personnel Medicine Cathie Palma MD - Cardiovascular Care Team Information Psychologist Personnel Disease Problems Active Problems Provider Date Generalized [...] Use Denies Drug Use Smoking Status Reviewed: 11/02/18 Patient has never smoked Exercise Type/Frequency Exercises [...] CPT Code Status Date Vaccine Lot # [id number] Given 03/01/2017 Influenza Virus Vaccine, Quadrivalent, Split, Preservative Free [id number] Given 12/23/2014 Flu Mist Vaccine, Live For Intranasal Use [id number] Given 12/03/2013 Flu Vaccine Split Virus Preservative Free For Indiv [id number] Older [id number] Given 05/19/2008 Tdap - Tetanus/Diptheria/Acellular Pertussis 24055 Refused 04/13/2018 Influenza Virus Vaccine, Quadrivalent, Split, Preservative Free Vital Signs Date Vital Result Comment 11/02/2018 9:06am Height 67 inches 5'7" Weight 149.00 lb Heart Rate 86 /min BP Systolic Sitting 102 mmHg BP Diastolic Sitting 62 mmHg O2 % BldC Oximetry 100 % BMI (Body Mass Index) 23.3 kg/m2 10/23/2018 8:36am Height 67 inches 5'7" Weight 151.00 lb Heart Rate 90 /min BP Systolic 100 mmHg BP Diastolic 65 mmHg O2 % BldC Oximetry 100 % BMI (Body Mass Index) 23.6 kg/m2 Results Description No Information Available Procedures Date Code Description Status 11/04/2017 93611978 Mammogram Completed Medical Devices Description No Information Available Encounters Type Date Location Provider Dx Diagnosis Office Visit 10/23/2018 [facility] Mamie Benz, N83.291 Other ovarian 8:30a [facility]IG[facility] TECHNICIAN-Cde cyst, right side Office Visit 10/15/2018 [facility] Mamie Chávezkins, N83.291 Other ovarian 9:00a Clinic [facility] TECHNICIAN-Cde cyst, right side Office Visit 05/08/2018 [facility] Cathie Palma, R07.89 Other chest pain 8:40a [facility] AT [facility] R00.2 Palpitations 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 examination without abnormal findings 11/02/2018 Z12.31 Encounter for screening mammogram for Hodan Spangler M.D. malignant neoplasm of breast 11/02/2018 Z12.4 Encounter for screening for malignant Hodan Spangler M.D. neoplasm of cervix 11/02/2018 Z23 Encounter for immunization Hodan Spangler M.D. 11/02/2018 Z71.3 Dietary counseling and surveillance Hodan Spangler M.D. 10/23/2018 N83.291 Other ovarian cyst, right side Mamie Benz, HIGHWAY TECHNICIAN-[place] 10/15/2018 N83.291 Other ovarian cyst, right side [facility]de 05/08/2018 R07.89 Other chest pain Cathie Palma M.D. 05/08/2018 R00.2 Palpitations Cathie Palma M.D. 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 Plan of Treatment Future Appointment(s):11/23/2018 8:30 am - Boby Mccall at [facility]11/02/2018 - Hodan Spangler M.D.Z00.00 Encounter for general adult medical examination without abnormal findingsComments:VACCINES: Flu shot every year in the fall. You received th tetanus /whooping cough booster today SCREENING:(F)Mammogram: every 1-2 years between age 40 -75(F) Pelvic Exam/Pap smear: every 3-5 years up toage 65 if low riskScreening for glaucoma: every 1-2 years unless otherwise instructed by your eye doctor Cardiovascular Disease: Cholesterol Screening test every 5 yearsEXERCISE:Leg exercise like walking is essential to maintaining independence!We would like to have a copy on file when you get your Health Care Proxy and Advance Directives completed.Z12.31 Encounter for screening mammogram for malignant neoplasm of vpqbqtB42.4 Encounter for screening for malignant neoplasm of cervixNew Labs: Cytology, Ordered: 11/02/18Z23 Encounter for immunizationImmunizations/ Injections:Tdap - Tetanus/Diptheria/Acellular CyoxtayixM73.3 Dietary counseling and surveillance Functional Status Description No Information Available Mental [...] (OS) and perceives HR is high. [address] [facility] [address] [place] [address] [phone]
--- OUTSIDE RECORDS SUMMARY | 2018-11-20 09:26 | XMS REPORT | Continuity of Care Document ---
:1975 External Reference #:[id number] Author Name Mamie Chávezkins, INSTRUMENT CALIBRATOR-Cde (transmitted by agent of provider Regina Whelan) Address [address] [place] [address], [place] [address] Care Team Providers Name Role Phone Physical Therapy AT [place] - Care Team Information Bench Assembler Physical Therapist Hodan Spangler MD - Internal Care Team Information Bench Assembler Medicine Cathie Palma MD - Cardiovascular Care Team Information Bench Assembler Disease Problems Active Problems Provider Date Generalized [...] Mckinley Brooks M.D. Onset: 06/03/2017 Autonomic dysreflexia aCthie Palma M.D. Onset: 09/26/2017 Family history of [...] Use Denies Drug Use Smoking Status Reviewed: 10/23/18 Patient has never smoked Exercise Type/Frequency Exercises [...] CPT Code Status Date Vaccine Lot # [id number] Given 03/01/2017 Influenza Virus Vaccine, Quadrivalent, Split, Preservative Free [id number] Given 12/23/2014 Flu Mist Vaccine, Live For Intranasal Use [id number] Given 12/03/2013 Flu Vaccine Split Virus Preservative Free For Indiv [id number] [id number] Older [id number] Given 05/19/2008 Tdap - Tetanus/Diptheria/Acellular Pertussis [id number] Refused 04/13/2018 Influenza Virus Vaccine, Quadrivalent, Split, Preservative Free Vital Signs Date Vital Result Comment 10/23/2018 8:36am Height 67 inches 5'7" Weight 151.00 lb Heart Rate 90 /min BP Systolic 100 mmHg BP Diastolic 65 mmHg O2 % BldC Oximetry 100 % BMI (Body Mass Index) 23.6 kg/m2 10/15/2018 9:01am Height 67 inches 5'7" Weight 149.00 lb Heart Rate 74 /min BP Systolic 104 mmHg BP Diastolic 68 mmHg O2 % BldC Oximetry 100 % BMI (Body Mass Index) 23.3 kg/m2 Last Menstrual Period [id number] Results Description No Information Available Procedures Date Code Description Status 11/04/2017 [id number] Mammogram Completed Medical Devices Description No Information Available Encounters Type Date Location Provider Dx Diagnosis Office Visit 10/15/2018 [facility] Mamie Benz, N83.291 Other ovarian 9:00a [facility] INSTRUMENT CALIBRATOR-Cde cyst, right side Office Visit 05/08/2018 [facility] Cathie Palma, R07.89 Other chest pain 8:40a Of [facility] AT [facility] Francis R00.2 Palpitations 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 05/08/2018 R00.2 Palpitations Cathie Palma M.D. 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 Plan of Treatment Future Appointment(s):11/02/2018 9:10 am - Hodan Spangler M.D. at [facility] Internal Medicine - [facility] Functional Status Description No Information Available Mental Status Description No Information Available Referrals Refer to Dr Reason for Referral Status Appt Date Willie Bruce MD Mild dysautonemia, BP blunted exercising, Sent previously big runner, afraid recently. Please assist with program/reassurance on regimen to improve vascular tone, get back to prior level of running. The patient notes regular lightheaded (OS) and perceives HR is high. [address] [facility] [address] [place] [address] [phone]
--- NOTE | 2018-11-20 09:47 | ED ---
Abdominal Pain/Female - HPI Summary HPI Summary: This pt is a 42 Y/O F presenting to [facility] with a CC of of lower abdominal pain that started last night at 1900 and caused her to writhe in pain on the ground. She states that she has had a fever present after the onset and she has been nauseous. She states that this morning the pain has decreased to a 6/10 in severity and states that she has had bleeding. Her last period was 21 days ago on 10/30/18. She states that she has no upper abdominal pain or diarrhea. She states that she is unable to walk as her symptoms are aggravated when she does. Her symptoms are alleviated when she lays down. She states that the symptoms are similar to a few months ago when she was diagnosed with a ruptured ovarian cyst. She has no pertinent PMHx. - History of Current Complaint Chief Complaint: EDAbdVinayin Stated Complaint: ABDOMINAL PAIN, FEVER PER PT Time Seen by Provider: 11/20/18 09:28 Hx Obtained From: Patient Hx Last Menstrual Period: 06/11/17 ?: No Onset/Duration: Sudden Onset - 19011/19/18 Timing: Constant Severity Initially: Severe Severity Currently: Moderate Pain Intensity: 6 Pain Scale Used: 0-10 Numeric Location: Suprapubic Radiates: No Aggravating Factor(s): Movement Alleviating Factor(s): Position - lying down Associated Signs and Symptoms: Positive: Fever, Constipation, Vaginal Bleeding, Nausea, Other: - Upper abdominal pain (negative). Negative: Vomiting, Diarrhea Allergies/Adverse Reactions: Allergies Allergy/AdvReac Type Severity Reaction Status Date / Time Sulfa (Sulfonamide Allergy Anaphylatic Verified 11/20/18 09:29 Antibiotics) Shock Bee Venom Allergy Swelling Uncoded 06/20/17 16:01 Home Medications: Home Medications Ibuprofen TAB* [Advil TAB*] 200 mg PO Q6H PRN 11/20/18 [History Confirmed ] PMH/Surg Hx/FS Hx/Imm Hx Previously Healthy: Yes Endocrine/Hematology History: Denies: Hx Diabetes, Hx Thyroid Disease Cardiovascular History: Denies: Hx Hypertension, Hx Pacemaker/ICD Respiratory History: Denies: Hx Asthma, Hx Chronic Obstructive Pulmonary Disease (COPD) GI History: Denies: Hx Ulcer History: Denies: Hx Renal Disease Sensory History: Denies: Hx Hearing Aid Psychiatric History: Denies: Hx Panic Disorder - Surgical History Surgical History: Yes Surgery Procedure, Year, and Place: ACL REPAIR RT KNEE,WISDOM TEETH EXTRACTION - Immunization History Immunizations Up to Date: Yes Infectious Disease History: No Infectious Disease History: Denies: Hx Clostridium Difficile, Hx Hepatitis, Hx Human Immunodeficiency Virus (HIV), Hx of Known/Suspected MRSA, Hx Shingles, Hx Tuberculosis, Hx Known/ Suspected VRE, Hx Known/Suspected VRSA, History Other Infectious Disease, Traveled Outside the [place] in Last 30 Days - Family History Known Family History: Positive: Other - FATHER CANCER Negative: Cardiac Disease, Diabetes - Social History Occupation: Employed Part-time Lives: With Family Alcohol Use: None Hx Substance Use: No Substance Use Type: Reports: None Hx Tobacco Use: No Smoking Status (MU): Never Smoked Tobacco Review of Systems Positive: Fever Positive: Abdominal Pain - POSITIVE: suprapubic, NEGATIVE: upper abdominal pain , Nausea. Negative: Vomiting, Diarrhea All Other Systems Reviewed And Are Negative: Yes Physical Exam - Summary Physical Exam Summary: Appearance: The patient is well-nourished in no acute distress and in no acute pain. Skin: The skin is warm and dry and skin color reflects adequate perfusion. HEENT: The head is normocephalic and atraumatic. The pupils are equal and reactive. The conjunctivae are clear and without drainage. Nares are patent and without drainage. Mouth reveals moist mucous membranes and the throat is without erythema and exudate. The external ears are intact. The ear canals are patent and without drainage. The tympanic membranes are intact. Neck: The neck is supple with full range of motion and non-tender. There are no carotid bruits. There is no neck vein distension. Respiratory: Chest is non-tender. Lungs are clear to auscultation and breath sounds are symmetrical and equal. Cardiovascular: Heart is regular rate and rhythm. There is no murmur or rub auscultated. There is no peripheral edema and pulses are symmetrical and equal. Abdomen: The abdomen is soft and non-tender. There are normal bowel sounds heard in all four quadrants and there is no organomegaly palpated. Musculoskeletal: There is no back tenderness noted. Extremities are non-tender with full range of motion. There is good capillary refill. There is no peripheral edema or calf tenderness elicited. Neurological: Patient is alert and oriented to person, place and time. The patient has symmetrical motor strength in all four extremities. Cranial nerves are grossly intact. Deep tendon reflexes are symmetrical and equal in all four extremities. Psychiatric: The patient has an appropriate affect and does not exhibit any anxiety or depression. Triage Information Reviewed: Yes Vital Signs On Initial Exam: Initial Vitals Temp Pulse Resp BP Pulse Ox 97.9 F 76 16 111/71 100 11/20/18 09:11 11/20/18 09:11 11/20/18 09:11 11/20/18 09:11 11/20/18 09:11 Vital Signs Reviewed: Yes Procedures - Sedation Patient Received Moderate/Deep Sedation with Procedure: No Diagnostics - Vital Signs Vital Signs Temp Pulse Resp BP Pulse Ox 11/20/18 09:11 97.9 F 76 16 111/71 100 - Laboratory Result Diagrams: 11/20/18 09:54 11/20/18 09:54 Lab Statement: Any lab studies that have been ordered have been reviewed, and results considered in the medical decision making process. - Ultrasound Transvaginal Ultrasound Interpretation Completed By: Radiologist Summary of Ultrasound Findings: Echogenic lesion in the right ovary measuring 3.3 cm likely representing a. hemorrhagic cyst. Follow-up exam is suggested. Posterior fibroid in the uterus with a small amount of free fluid. ED physician has reviewed this report. Abdominal Pain Fem Course/Dx - Course Course Of Treatment: She had the sudden onset of low abdominal severe pain about an hour and a half prior to presentation. By the time I see her the pain is almost completely gone. She was here about 6 weeks ago with a hemorrhagic ovarian cyst. She underwent CT scan at that time. Her vitals are stable and she was nontoxic in appearance with a nontender abdomen. Ultrasound showed a likely secondary to persistent this time. She has an appointment on Friday with [facility] and I recommended she keep that and offered pain control which she declined. - Diagnoses Provider Diagnoses: Hemorrhagic ovarian cyst Discharge ED - Sign-Out/Discharge Documenting (check all that apply): Patient Departure - discharge - Discharge Plan Condition: Stable Disposition: HOME Patient Education Materials: Ovarian Cyst (ED), Ruptured Ovarian Cyst (ED) Referrals: Hodan Spangler MD [Primary Care Provider] - 3 Days Additional Instructions: PLEASE RETURN TO THE ED IMMEDIATELY FOR WORSENING OR CONCERNING SYMPTOMS AND FOLLOW UP WITH YOUR PRIMARY CARE PHYSICIAN IN 1-3 DAYS. Do not change your appointment with [facility]. - Billing Disposition and Condition Condition: STABLE Disposition: Home - Attestation Statements Document Initiated by Bisi: Yes Documenting Scribe: Dominik Crocker Provider For Whom Bisi is Documenting (Include Credential): Levon Mobley MD Scribe Attestation: Dominik Barraza, scribed for Levon Mobley MD on 11/20/18 at 1554. Scribe Documentation Reviewed: Yes Provider Attestation: The documentation as recorded by the Dominik wiseman accurately reflects the service I personally performed and the decisions made by me, Levon Mobley MD Status of Scribe Document: Viewed
[2018-11-20 10:11] LABS: ABS Lymphocytes 0.6 10^3/ul (1.0-4.8); ABS Monocytes 0.5 10^3/ul (0-0.8); ABS Neutrophils 6.3 10^3/ul (1.5-7.7); Eosinophil % 0.5 %; Hematocrit 37 % (35-47); Hemoglobin 12.9 g/dL (12.0-16.0); Lymphocyte % 8.1 %; Mean Corpuscular HGB Conc 35 g/dL (31-36); Mean Corpuscular Hemoglobin 30 pg (27-31); Mean Corpuscular Volume 88 fL (80-97); Mean Platelet Volume 9.1 fL (7.4-10.4); Platelet Count 169 10^3/uL (150-450); Red Blood Count 4.24 10^6 /uL (3.70-4.87); Red Cell Distribution Width 14 % (10-15); White Blood Count 7.4 10^3/uL (3.5-10.8)
[2018-11-20 10:29] LABS: ALT 8 U/L (7-52); AST 14 U/L (13-39); Albumin 4.3 g/dL (3.2-5.2); Albumin/Globulin Ratio 1.6 (1-3); Alkaline Phosphatase 39 U/L (34-104); Anion Gap 7 mmol/L (2-11); BUN/Creatinine Ratio 15.2 (8-20); Blood Urea Nitrogen 12 mg/dL (6-24); C Reactive Protein 39.36 mg/L (<8.01); CO2 Carbon Dioxide 26 mmol/L (22-32); Calcium 9.2 mg/dL (8.6-10.3); Chloride 104 mmol/L (101-111); EGFR African American 97.5 (>60); EGFR Non-African American 80.6 (>60); Globulin 2.7 g/dL (2-4); Glucose 108 mg/dL (70-100); Potassium 3.9 mmol/L (3.5-5.0); Sodium 137 mmol/L (135-145)
[2018-11-20 10:36] LABS: HCG Pregnancy < 0.60 mIU/mL
[2018-11-20 12:27] VITALS: BP 123/78
[2018-11-20 12:51] LABS: Urine Appearance Turbid; Urine Bacteria 1+ (Absent); Urine Bilirubin Negative (Negative); Urine Blood 3+ (Negative); Urine Color Amber; Urine Glucose Negative (Negative); Urine Ketones 1+ (Negative); Urine Nitrite Negative (Negative); Urine Protein 2+(100 mg/dL) (Negative); Urine Red Blood Cell 2+(6-10/hpf) (Absent); Urine Specific Gravity 1.026 (1.010-1.030); Urine Squamous Epithelial Cell Present (Absent); Urine Urobilinogen Negative (Negative); Urine White Blood Cell 1+(6-10/hpf) (Absent)
== END 2018-11-20 12:10 | disposition home or self-care (01) ==
LOC: ED 09:09
DX: N83.201 Unspecified ovarian cyst, right side (principal); Z88.2 Allergy status to sulfonamides
CPT/HCPCS: 36415; 76830; 80053; 81003; 81015; 83605; 84702; 85025; 86140; 87086; 99282

== ENCOUNTER 2019-03-08 15:05 | Emergency (ER) | payer BC ==
--- OUTSIDE RECORDS SUMMARY | 2019-03-08 15:11 | XMS REPORT | Continuity of Care Document ---
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 0.3mg/0.3ML exposure to bee Solution sting ) Auto-Inject Vitamin D3 1 by mouth every day Unknown Gummies in winter Ibuprofen 2 tablet po as Unknown 200mg needed for pain Vitamin K2 1 by mouth every day Unknown 100mcg Capsules Black as needed Unknown Elderberry(Gaytan-Fl ower) 575mg Capsules Magnesium Aluminum prn for constipation Unknown Silicate Powder Low-Ogestrel Take One Tablet By Unknown Mouth Every Day 0.3-30mg-mcg Tablets Immunizations CPT Code Status Date Vaccine Reaction Lot # [id number] Given 12/25/2018 Influenza Virus Vaccine, No immediate reaction [id number] Quadrivalent ([id number]), Derived From Cell [id number] Given 11/02/2018 Tdap - [id number] Tetanus/Diptheria/Acellular Pertussis 51831 Given 03/01/2017 Influenza Virus Vaccine, Quadrivalent, Split, Preservative Free 61296 Given 12/23/2014 Flu Mist Vaccine, Live For [id number] Intranasal Use 45606 Given 12/03/2013 Flu Vaccine Split Virus [id number] Preservative Free For Indiv 3Yr Older 48437 Given 05/19/2008 Tdap - Tetanus/Diptheria/Acellular Pertussis [id number] Refused 04/13/2018 Influenza Virus Vaccine, Quadrivalent, Split, Preservative Free Vital Signs Date Vital Result Comment 01/26/2019 2:56pm Height 67 inches 5'7" Weight 149.00 lb Heart Rate 76 /min BP Systolic Sitting 107 mmHg BP Diastolic Sitting 71 mmHg BMI (Body Mass Index) 23.3 kg/m2 11/23/2018 8:36am Height 67 inches 5'7" Weight 146.00 lb Heart Rate 82 /min BP Systolic 101 mmHg BP Diastolic 60 mmHg O2 % BldC Oximetry 100 % BMI (Body Mass Index) 22.9 kg/m2 Results Test Acquired Date Facility Test Result H/L Range Note Laboratory test 12/24/2018 [facility] Vitamin B12 249 pg/mL Normal 180-914 [address] [place] [address] [phone] Rubella Screen Immune Immune Mumps Igg 12/24/2018 [facility] Mumps Virus IgG Antibody Positive [address] [place] [address] [phone] Mumps IgG Antibody Index 3.1 3 Rubeola Measles 12/24/2018 [facility] Rubeola (Measles) Positive 4 Igg AB [address] [facility] [place] [address] [phone] Rubeola IgG Antibody Index 4.0 5 Laboratory test 12/23/2018 [facility] Rubella Screen <pending> finding [address] [place] [address] [phone] Rubeola Measles Igg AB <pending> Mumps Igg <pending> Laboratory test 11/23/2018 [facility] Cancer Ag 165 U/mL Abnormal <46 6 finding [address] [facility] ([address] [place] [address] [phone] He4 Ovarian Cancer Marker 41 pmol/L <=140 7 Miscellaneous Test See Comment 8 CBC Auto 11/20/2018 [facility] White Blood 7.4 10^3/uL Normal 3.5-10.[address] [place] [address] [phone] Red Blood Count 4.24 10^6/uL Normal 3.70-4.87 Hemoglobin 12.9 g/dL Normal 12.0-16.0 Hematocrit 37 % Normal 35-47 Mean Corpuscular Volume 88 fL Normal 80-97 Mean Corpuscular Hemoglobin 30 pg Normal 27-31 Mean Corpuscular HGB Conc 35 g/dL Normal 31-36 Red Cell Distribution Width 14 % Normal 10-15 Platelet Count 169 10^3/uL Normal 150-450 Mean Platelet Volume 9.1 fL Normal 7.4-10.4 Abs Neutrophils 6.3 10^3/uL Normal 1.5-7.7 Abs Lymphocytes 0.6 10^3/uL Low 1.0-4.8 Abs Monocytes 0.5 10^3/uL Normal 0-0.8 Abs Eosinophils 0.0 10^3/uL Normal 0-0.6 Abs Basophils 0.0 10^3/uL Normal 0-0.2 Abs Nucleated RBC 0.0 10^3/uL Granulocyte % 84.7 % Lymphocyte % 8.1 % Monocyte % 6.3 % Eosinophil % 0.5 % Basophil % 0.4 % Nucleated Red Blood Cells % 0.0 Laboratory test 11/20/2018 [facility] Lactic Acid 1.5 mmol/L Normal 0.5-2.0 9 finding [address] [place] [address] [phone] Comp Metabolic 11/20/2018 [facility] Sodium 137 mmol/L Normal 135-145 Panel [address] [place] [address] [phone] Potassium 3.9 mmol/L Normal 3.5-5.0 Chloride 104 mmol/L Normal 101-111 Co2 Carbon Dioxide 26 mmol/L Normal 22-32 Anion Gap 7 mmol/L Normal 2-11 Glucose 108 mg/dL High 70-100 Blood Urea Nitrogen 12 mg/dL Normal 6-24 Creatinine 0.79 mg/dL Normal 0.51-0.95 BUN/Creatinine Ratio 15.2 Normal 8-20 Calcium 9.2 mg/dL Normal 8.6-10.3 Total Protein 7.0 g/dL Normal 6.4-8.9 Albumin 4.3 g/dL Normal 3.2-5.2 Globulin 2.7 g/dL Normal 2-4 Albumin/Globulin Ratio 1.6 Normal 1-3 Total Bilirubin 0.50 mg/dL Normal 0.2-1.0 Alkaline Phosphatase 39 U/L Normal 34-104 Alt 8 U/L Normal 7-52 Ast 14 U/L Normal 13-39 Egfr Non- 80.6 >60 Egfr 97.5 >60 10 Laboratory test 11/20/2018 [facility] C Reactive 39.36 mg/L High <8.[address] [place] [address] [phone] HCG < 0.60 mIU/mL 11 Urinalysis Profile 11/20/2018 [facility] Urine Color Mindy [address] [place] [address] [phone] Urine Appearance Turbid Urine Specific [place] 1.026 Normal 1.010-1.030 Urine pH 5.0 Normal 5-9 Urine Urobilinogen Negative Negative Urine Ketones 1+ Abnormal Negative Urine Protein 2+(100 mg/dL) Abnormal Negative Urine Leukocytes Negative Negative Urine Blood 3+ Abnormal Negative * * Abnormal Negative 12 Urine Nitrite Negative Negative Urine Bilirubin Negative Negative Urine Glucose Negative Negative Urine White Blood Cell 1+(6-10/hpf) Abnormal Absent Urine Red Blood Cell 2+(6-10/hpf) Abnormal Absent Urine Bacteria 1+ Abnormal Absent Urine Squamous Epithelial Cell Present Abnormal Absent Urine Culture And 11/20/2018 [facility] Urine Culture SEE RESULT [address] [place] [address] [phone] Laboratory test 11/02/2018 [facility] Cytology SEE RESULT [address] [place] [address] [phone] 1 Normal Range 180 to 914 Indeterminate Range 145 to 180 Deficient Range <145 2 Results suggest response to immunization or prior exposure to the virus. REFERENCE VALUE Vaccinated: Positive (>=1.1 AI) Unvaccinated: Negative (<=0.8 AI) 3 Test Performed by: [facility] [place] [address] Flow Worker: Kasi Collier M.D. Ph.D.; CLIA# [id number] 4 Results suggest response to immunization or prior exposure to the virus. REFERENCE VALUE Vaccinated: Positive (>=1.1 AI) Unvaccinated: Negative (<=0.8 AI) 5 Test Performed by: [facility] [place] [address] Flow Worker: Kasi Collier M.D. Ph.D.; CLIA# [id number] 6 ADDITIONAL INFORMATION The testing method is an electrochemiluminescence assay manufactured by [employer] and performed on the William system. Values obtained with different assay methods or kits may be different and cannot be used interchangeably. Test results cannot be interpreted as absolute evidence for the presence or absence of malignant disease. Test Performed by: [facility] [place] [address] Flow Worker: Kasi Collier M.D. Ph.D.; CLIA# [id number] 7 ADDITIONAL INFORMATION The testing method is an electrochemiluminescence assay manufactured by [employer] and performed on the Modular or William system. Values obtained with different assay methods or kits may be different and cannot be used interchangeably. Test results cannot be interpreted as absolute evidence for the presence or absence of malignant disease. Test Performed by: [facility] [place] [address] Flow Worker: Kasi Collier M.D. Ph.D.; CLIA# [id number] 8 Test Result Flag Unit RefValue CATERINA Score HE4,S 49 pmol/L <=140 Cancer Ag 125 (CA 125), S 156 H U/mL <46 Risk Score, if 0.82 premenopausal In premenopausal women a CATERINA value > or = 1.14 indicates a high risk of finding epithelial ovarian cancer whereas a CATERINA value < 1.14 indicates a low risk of finding epithelial ovarian cancer at surgery. REFERENCE VALUE Premenopausal: < 1.14 (low risk) = or > 1.14 (high risk) Risk Score, if 4.14 postmenopausal In postmenopausal women a CATERINA value > or = 2.99 indicates a high risk of finding epithelial ovarian cancer whereas a CATERINA value < 2.99 indicates a low risk of finding epithelial ovarian cancer at surgery. REFERENCE VALUE Postmenopausal: < 2.99 (low risk) = or > 2.99 (high risk) ADDITIONAL INFORMATION The testing method is an electrochemiluminescence assay manufactured by [employer] and performed on the William system. Values obtained with different assay methods or kits may be different and cannot be used interchangeably. Test results cannot be interpreted as absolute evidence for the presence or absence of malignant disease. Test Performed by: [place] [address] Flow Worker: Kasi Collier M.D. Ph.D.; CLIA# [id number] 9 [facility] Severe Sepsis and Septic Shock Management Bundle Measure requires all lactic acids initially measuring >2.0 mmol/L be repeated. 10 Because ethnic data is not always readily [...] 15-29 5 Kidney failure <15 (or dialysis) 11 <5.0 Negative 5.0 - 25.0 Indeterminate (Repeat testing recommended after 72 hours) >25.0 Positive Perimenopausal women can display HCG levels of up to 20 mIU/mL 12 *Ascorbic acid is present which may interfere with detection of blood. 13 SEE RESULT BELOW Name: CARMENZA LUNA : [address]: Levon Mobley MD Acct: [id number] Unit: [id number] AGE: 42 Location: ED Re11/20/18 SEX: F Status: DEP ER SPEC: [id number] ANDREA: 11/20/[address]: Levon Mobley MD REQ: [id number] RECD: 11/20/18 STATUS: LULU GOMEZHR DR: Hodan Spangler MD _ SOURCE: URINE SPDESC: ORDERED: Urine Culture Procedure Result Reported Site Urine Culture Final 11/22/18- 0920 ML No growth of clinically significant organisms * - Main Lab . END OF REPORT DEPARTMENT OF PATHOLOGY, [address] [place] [address] Nathan Hay M.D. Director [facility] # [id number] 14 SEE RESULT BELOW Name: CARMENZA LUNA : [address]: Hodan Spangler MD Acct: [id number] Unit: [id number] AGE: 42 Location: [facility] Re11/02/18 SEX: F Status: REG REF SPEC: [id number] ANDREA: 11/02/18-[address]: Hodan Spangler MD REQ: [id number] RECD: 11/02/18-1246 STATUS: SOUT _ ORDERED: TP IMAGE ANALYS, HPV/Thin Prep, HPV 16/18 GENE COMMENTS: [id number] FINAL DIAGNOSIS Negative for Intraepithelial lesion or Malignancy HPV RESULTS Date Time Test Result Flag (u) Normal Range 11/02/18 1103 HPV OLEKSANDR RFLX GE Negative Negative The high-risk HPV types detected by the assay include: 16, 18, 31, 33, 35, 39, 45, 51, 52, 56, 58, 59, 66, and 68. SPECIMEN(S) RECEIVED A. Ectocervical/Endocervical CYTOLOGY ADEQUACY Specimen Adequacy: Satisfactory of evaluation Transformation zone component not identified CYTOLOGY PATIENT INFORMATION Patient Information: HPV: High risk HPV RNA testing regardless of pap results. HPV 16/18 Genotype Reflex Actual Specimen Date: 11/02/18 Last Menstrual Date: 10/30/18 Previous Abnormal Pap Smears?:N CONTINUED ON NEXT PAGE DEPARTMENT OF PATHOLOGY, [facility] [employer] [place] [address] Nathan Hay M.D. Director [facility] # [id number] Signed by and Reported on: ABDIEL Vasquez (ASCP) 1512 This Pap test was evaluated with the assistance of the Elephant[employer]p Test Imaging System. Due to cytologic findings at the regrader microscope, comprehensive manual rescreening by a Service Rig Operator may be required. The Pap Smear is [...] evaluated every 1-3 years. END OF REPORT DEPARTMENT OF PATHOLOGY, [facility] [employer] [place], [place] [address] Nathan Hay M.D. 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 adult medical exam w/o abnormal findings Z12.31 Encntr screen mammogram for malignant neoplasm of breast Z12.4 Encounter for screening for malignant neoplasm of cervix Z23 Encounter for immunization Z71.3 Dietary counseling and surveillance [facility] N[facility].291 Other ovarian [facility] PRINTING PLATE CLERK-Cde cyst, right side Office Visit 10/15/2018 9:00a [facility] Mamie Benz, N83.291 Other ovarian [facility] PRINTING PLATE CLERK-Cde cyst, right side Assessments Date Code Description Provider 01/26/2019 K92.2 Gastrointestinal hemorrhage, unspecified Kelly Flynn MD 01/26/2019 N83.201 Unspecified ovarian cyst, right side Kelly Flynn MD 12/25/2018 Z23 Encounter for immunization Nurse Visit A 11/23/2018 N83.201 Unspecified ovarian cyst, right side YUSUF Mccall- Cde 11/02/2018 Z00.00 Encounter for general adult medical [...] 10/23/2018 N83.291 Other ovarian cyst, right side MAMI MccallP-Cde 10/15/2018 N83.291 Other ovarian cyst, right side Mamie Demar, [facility] Plan of Treatment 01/26/2019 - Kelly Flynn MDK92.2 Gastrointestinal hemorrhage, unspecifiedReferral:Chanda Crowell M.D., Single Specialty CphdyF67.201 Unspecified ovarian cyst, right side Functional Status Description No Information Available Mental Status Description No Information Available Referrals Refer to Dr Reason for Referral Status Appt Date Chanda Crowell M.D. Created [address] [place] [address] [phone] Tim Schwab MD Scheduled 11/25/2018 [facility] [address] [place] [address] [phone]
--- NOTE | 2019-03-08 15:57 | UC ---
Skin Complaint HPI - HPI Summary HPI Summary: 43 y/o female presents to the urgent care c/o pain on her umbilicus s/p laparascopic surgery for removal of RT ovary and B/L fallopian tubes about 2 weeks ago. 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 She had a f/u herb last 03/04/[address] told her laparascopic incision were well w/o any signs of infection,. She has been taken Senna and Ducolax which was Rx after surgery to soften her stools. She noticed today her stools were darker.She has been w/ BM on a daily basis. Pain started yesterday around her umbilicus w/ a burning sensation, specially w/ movement and at touch w/o any radiation. She has been taking Tylenol and Ibuprofen PO. She called her oncologist surgeon office and was advised to come to the urgent care to be evaluated. Her Laparascopic incision were closed w/ skin adhesive which still present. Pt denies fever, urinary symptoms, pelvic pain, lower back pain, flank pain, vaginal bleeding, dizziness, rash, drainage from incision, NATARAJAN, chest pain, SOB, N/V/D. - History of Current Complaint Chief Complaint: UCSkin Time Seen by Provider: 03/08/19 15:54 Stated Complaint: BELLY BUTTON AREA PAIN Hx Obtained From: Patient Hx Last Menstrual Period: week ago ?: No - Pt declines prenancy test Onset/Duration: Gradual Onset, Lasting Days - 1 days w/ unbilical pain, Still Present Skin Exposure Onset/Duration: Weeks Ago - 2 weeks ago B/l fallopian tube and RT ovary removal surgery s/ a benign mass Timing: Intermittent Episodes Lasting: Onset Severity: Mild Current Severity: Mild Pain Intensity: 2 Pain Scale Used: 0-10 Numeric Location: Discrete - unbillicus incision pain Character: Pain Aggravating Factor(s): Touch Associated Signs & Symptoms: Positive: Tenderness - around umbilicus. Negative : Nausea, Diaphoresis, Fever, Chills, Drainage Related History: Other: - laparascopic surgery for RT ovary and B?L fallopian tube removal - Allergy/Home Medications Allergies/Adverse Reactions: Allergies Allergy/AdvReac Type Severity Reaction Status Date / Time Sulfa (Sulfonamide Allergy Anaphylatic Verified 03/08/19 15:42 Antibiotics) Shock Bee Venom Allergy Swelling Uncoded 03/08/19 15:42 Home Medications: Home Medications Acetaminophen [Athenol] 2 tab PO DAILY 03/08/19 [History Confirmed 03/08/19] Bisacodyl [Dulcolax] 1 tab PO DAILY 03/08/19 [History Confirmed 03/08/19] Cholecalciferol (Vitamin D3) [Vitamin D3] 1 tab PO DAILY 03/08/19 [History Confirmed 03/08/19] Cyanocobalamin (Vitamin B-12) [Vitamin B-12] 2 tab PO DAILY 03/08/19 [History Confirmed 03/08/19] Elderberry Fruit/Honey [Little Remedies Cough-Immune] 2 tab PO DAILY 03/08/19 [ History Confirmed 03/08/19] Clothier-3 Fatty Acids/Fish Oil [Clothier 3 1,000 mg Softgel] 1 tab PO DAILY 03/08/19 [History Confirmed 03/08/19] Sennosides [Senna] 1 tab PO DAILY 03/08/19 [History Confirmed 03/08/19] Zinc 1 tab PO DAILY 03/08/19 [History Confirmed 03/08/19] PMH/Surg Hx/FS Hx/Imm Hx Previously Healthy: Yes Other GI/ History: RT ovarian tumor - Surgical History Surgical History: Yes Surgery Procedure, Year, and Place: ACL REPAIR RT KNEE,WISDOM TEETH EXTRACTION. ovarian surgery -fallopian and tumor removal - Family History Known Family History: Positive: Other - FATHER CANCER CLL Negative: Cardiac Disease, Diabetes - Social History Occupation: Employed Full-time Lives: With Family Alcohol Use: Occasionally Substance Use Type: None Smoking Status (MU): Never Smoked Tobacco Review of Systems All Other Systems Reviewed And Are Negative: Yes Constitutional: Positive: Negative Skin: Positive: Negative Eyes: Positive: Negative ENT: Positive: Negative Respiratory: Positive: Negative Cardiovascular: Positive: Negative Gastrointestinal: Positive: Abdominal Pain - around unbilical incision s/p laparascopic surgery Genitourinary: Positive: Negative Motor: Positive: Negative Neurovascular: Positive: Negative Musculoskeletal: Positive: Negative Neurological: Positive: Negative Psychological: Positive: Negative Is Patient Immunocompromised?: No Physical Exam - Summary Physical Exam Summary: Vital Signs Reviewed: Yes General:Patient is a well developed and nourished female who is sitting comfortably in the examining table. Patient is not in any acute respiratory distress. Eyes: Positive: Conjunctiva Clear - PERRLA, EOMI, fundi grossly normal ENT: Positive: Normal ENT inspection, Hearing grossly normal, Pharynx normal, TMs normal Neck: Positive: Supple, Nontender, No Lymphadenopathy Respiratory: Positive: Chest non-tender, Lungs clear, Normal breath sounds, No respiratory distress Cardiovascular: Positive: RRR,S1 and S2 present, No Murmur, Pulses Normal, Brisk Capillary Refill Abdomen Description: Positive: Abd: Flat with no distention. No surface trauma , 4 laparascopic incisions on the abdomen closed w/ skin adhesive. hyperactive bowel sounds present in all four quadrants. mild tenderness tenderness over the umbilicus w/o any erythema, swelling or drainage. No abdominal guarding, rigidity to palpation. No masses palpated, no pulsation in epigastric area. No organomegaly. Negative Canisteo signs. No periumbilical tenderness. No rebound in the lower quadrants. NT over McBurneys point. Good femoral pulses bilaterally. No hernia noted. No CVAT bilaterally. Rectal examination: I was assisted by nurse Bush. rectal examination reveals no external anal lesions. Sphincter tone is normal. There are no internal or external hemorrhoids. Rectal mucosa appears normal, and there are no nodules or masses present. Stool is brown and negative for occult blood. Musculoskeletal: Positive: Strength Intact, ROM Intact, No Edema,FROM in all major joints, no edema, no cyanosis or clubbing. Neuro: Alert and oriented x 3. No acute neurological deficits. Speech is normal. Psychological: WNL Skin: Dry and warm Triage Information Reviewed: Yes Vital Signs: Initial Vital Signs Temp 98.9 F 03/08/19 15:34 Pulse 83 03/08/19 15:34 Resp 18 03/08/19 15:34 BP 115/79 03/08/19 15:34 Pulse Ox 100 03/08/19 15:34 Course/Dx - Course Course Of Treatment: 43 y/o female presents to the urgent care c/o pain on her umbilicus s/p laparascopic surgery for removal of RT ovary and B/L fallopian tubes about 2 weeks ago. 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 She had a f/u herb last 03/04/[address] told her laparascopic incision were well w/o any signs of infection,. She has been taken Senna and Ducolax which was Rx after surgery to soften her stools. She noticed today her stools were darker.She has been w/ BM on a daily basis. Pain started yesterday around her umbilicus w/ a burning sensation, specially w/ movement and at touch w/o any radiation. She has been taking Tylenol and Ibuprofen PO. She called her oncologist surgeon office and was advised to come to the urgent care to be evaluated. Her Laparascopic incision were closed w/ skin adhesive which still present. Pt denies fever, urinary symptoms, pelvic pain, lower back pain, flank pain, vaginal bleeding, dizziness, rash, drainage from incision, NATARAJAN, chest pain, SOB, N/V/D. Hx obtained. Pt is hemodynamically stable, A&OX3, PE; WNL, except w/mild tenderness tenderness over the umbilicus w/o any erythema, swelling or drainage. No abdominal guarding, rigidity to palpation.GRECIA: WNL, Hemoccult negative, UA; negative. Pt declines abdominal CT. Pt's symptoms discussed w/ Dr Suarez and he recommends Abdominal US to r/o abscess or fluid collection. IMPRESSION: THE LAPAROSCOPIC PORT SITE IS SONOGRAPHICALLY UNREMARKABLE. NO ORGANIZED FLUID COLLECTION OR LARGE HERNIA SAC IS IDENTIFIED. IF NECESSARY, CT COULD PROVIDE BETTER ANATOMIC RESOLUTION. A sample was taken from umbilicus and sent to lab to r/o any abnormality or MRSA. since Pt w/ Hx of MRSA. Bacitrain oint applied over umbilicus. Pt Rx Mupurocin oint as directed below and Pt strongly advised if she develops, fever , drainage or abdominal pain to go inmediately to the ER or f/u w/ her Surgeon for further management. D/C instructions explained. Pt understood and agreed w/ plan of care. - Differential Diagnoses - Skin Complaint Differential Diagnoses: Abscess, Cellulitis, Contact Dermatitis, Local Allergic Reaction, MRSA, Other - bowel obstruction, infected wound - Diagnoses Provider Diagnosis: Umbilical pain Discharge ED - Sign-Out/Discharge Documenting (check all that apply): Patient Departure - D/C home All imaging exams completed and their final reports reviewed: Yes - Discharge Plan Condition: Stable Disposition: HOME Prescriptions: Mupirocin 2% OINT* [Bactroban 2 % Oint*] 1 applic TOPICAL BID #1 tube Patient Education Materials: Acute Wound Care (ED) Referrals: Hodan Spangler MD [Primary Care Provider] - 2 Days Additional Instructions: 1-. Keep wound clean and dry with a sterile dressing. Apply Mupurocin topical as directed 2-. Continue taking Tylenol/ ibuprofen PO q6-8hrs prn for pain or swelling. 3-If you develop sever abdominal pain, fever or redness please go to the ER immediately or f/u w/ Oncologist for further management 4- Wound culture sent to lab, if any abnormal result you will receive a call from us. - Billing Disposition and Condition Condition: STABLE Disposition: Home
[2019-03-08 17:33] VITALS: BP 119/64
--- NOTE | 2019-03-11 15:18 | UC ---
- Progress Note Progress Note: PROGRESS NOTE: PRELIMINARY: ENTEROBACTER CLOACAE, 2+ No change in treatment. Kaden Gomez MD Course/Dx - Diagnoses Provider Diagnoses: Umbilical pain Discharge ED - Sign-Out/Discharge Documenting (check all that apply): Post-Discharge Follow Up All imaging exams completed and their final reports reviewed: Yes - Discharge Plan Condition: Stable Disposition: HOME Prescriptions: Mupirocin 2% OINT* [Bactroban 2 % Oint*] 1 applic TOPICAL BID #1 tube Patient Education Materials: Acute Wound Care (ED) Referrals: Hodan Spangler MD [Primary Care Provider] - 2 Days Additional Instructions: 1-. Keep wound clean and dry with a sterile dressing. Apply Mupurocin topical as directed 2-. Continue taking Tylenol/ ibuprofen PO q6-8hrs prn for pain or swelling. 3-If you develop sever abdominal pain, fever or redness please go to the ER immediately or f/u w/ Oncologist for further management 4- Wound culture sent to lab, if any abnormal result you will receive a call from us. - Billing Disposition and Condition Condition: STABLE Disposition: Home
--- NOTE | 2019-03-11 22:55 | UC ---
- Progress Note Progress Note: Her wound culture is growing Enterobacter. Her assessment included an USS which did not show abscess formation. Please call to ensure that she is seeing improvement in the area around the wound with the use of mupirocin. If she has persistent pain and redness, she might need oral antibiotic, but often infections such as this will improve with topical treatment. Course/Dx - Diagnoses Provider Diagnoses: Umbilical pain Discharge ED - Sign-Out/Discharge Documenting (check all that apply): Post-Discharge Follow Up All imaging exams completed and their final reports reviewed: Yes - Discharge Plan Condition: Stable Disposition: HOME Prescriptions: Mupirocin 2% OINT* [Bactroban 2 % Oint*] 1 applic TOPICAL BID #1 tube Patient Education Materials: Acute Wound Care (ED) Referrals: Hodan Spangler MD [Primary Care Provider] - 2 Days Additional Instructions: 1-. Keep wound clean and dry with a sterile dressing. Apply Mupurocin topical as directed 2-. Continue taking Tylenol/ ibuprofen PO q6-8hrs prn for pain or swelling. 3-If you develop sever abdominal pain, fever or redness please go to the ER immediately or f/u w/ Oncologist for further management 4- Wound culture sent to lab, if any abnormal result you will receive a call from us. - Billing Disposition and Condition Condition: STABLE Disposition: Home
== END 2019-03-08 17:45 | disposition home or self-care (01) ==
LOC: UCEAST 15:05
DX: R10.33 Periumbilical pain (principal); Z88.2 Allergy status to sulfonamides; Z91.030 Bee allergy status
CPT/HCPCS: 76705; 81003; 82270; 87070; 87077; 87186; 87205; 99212; G0463

== ENCOUNTER 2019-03-19 14:49 | Emergency (ER) | payer BC ==
[2019-03-19 15:03] VITALS: BP 118/83
[2019-03-19] MEDS ORDERED: Lidocaine 2% VISCOUS* 15 ML UDC PO ONE (15:27)
[2019-03-19] MEDS ORDERED: Al Hydrox/Mg Hydrox/Simet LIQ* 30 ML UDC PO ONE (15:27)
--- NOTE | 2019-03-19 15:35 | UC ---
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 now with epigastric pain and dyspepsia - History of Current Complaint Chief Complaint: UCSkin Time Seen by Provider: 03/19/19 15:01 Stated Complaint: SURGICAL INCISION ISSUE Hx Obtained From: Patient Hx Last Menstrual Period: 02/24/2019 Onset/Duration: Sudden Onset, Lasting Weeks Onset Severity: Mild Current Severity: Mild Pain Intensity: 1 Pain Scale Used: 0-10 Numeric Location: Other - umbilicus Character: Painful - to touch Aggravating Factor(s): Touch Alleviating Factor(s): Nothing Associated Signs & Symptoms: Positive: Drainage - very scant- Related History: Other: - surgical site - Allergy/Home Medications Allergies/Adverse Reactions: Allergies Allergy/AdvReac Type Severity Reaction Status Date / Time Sulfa (Sulfonamide Allergy Anaphylatic Verified 03/19/19 15:04 Antibiotics) Shock Bee Venom Allergy Swelling Uncoded 03/08/19 15:42 PMH/Surg Hx/FS Hx/Imm Hx Previously Healthy: Yes - Surgical History Surgical History: Yes Surgery Procedure, Year, and Place: ACL REPAIR RT KNEE,WISDOM TEETH EXTRACTION. ovarian surgery -fallopian and tumor removal - Family History Known Family History: Positive: Other - FATHER CANCER CLL Negative: Cardiac Disease, Diabetes - Social History Alcohol Use: Occasionally Substance Use Type: None Smoking Status (MU): Never Smoked Tobacco Review of Systems All Other Systems Reviewed And Are Negative: Yes Constitutional: Positive: Negative Skin: Positive: Other - see HPI Eyes: Positive: Negative ENT: Positive: Negative Respiratory: Positive: Negative Cardiovascular: Positive: Negative Gastrointestinal: Positive: Abdominal Pain, Other - dyspepesia Motor: Positive: Negative Neurovascular: Positive: Negative Musculoskeletal: Positive: Negative Neurological: Positive: Negative Psychological: Positive: Negative Physical Exam Triage Information Reviewed: Yes Appearance: Well-Appearing, No Pain Distress, Well-Nourished Vital Signs: Initial Vital Signs Temp 99.2 F 03/19/19 14:56 Pulse 88 03/19/19 14:56 Resp 18 03/19/19 14:56 BP 118/83 03/19/19 14:56 Pulse Ox 100 03/19/19 14:56 Vital Signs Reviewed: Yes Eyes: Positive: Conjunctiva Clear ENT: Positive: Hearing grossly normal. Negative: Nasal congestion, Nasal drainage, Tonsillar swelling, Tonsillar exudate, Hoarse voice Dental Exam: Normal Neck: Positive: Supple, Nontender, No Lymphadenopathy Respiratory: Positive: Lungs clear, Normal breath sounds, No respiratory distress, No accessory muscle use Cardiovascular: Positive: RRR, No Murmur, Pulses Normal Abdomen Description: Positive: Soft. Negative: Nontender - tender around surgical sites, CVA Tenderness (R), CVA Tenderness (L), Distended, Guarding, Pulsatile Mass, Splenomegaly Bowel Sounds: Positive: Present Musculoskeletal: Positive: ROM Intact, No Edema Neurological: Positive: Alert Psychological Exam: Normal Skin Exam: Other - no sign of infection or dihiscence Diagnostics - EKG Cardiac Rate: NL Cardiac Rhythm: Sinus: Normal Ectopy: None ST Segment: Normal Re-Evaluation - Re-Evaluation First Eval Re-Evaluation Time: 15:48 Change: Unchanged Course/Dx - Diagnoses Provider Diagnosis: Gastritis, Encounter for wound re-check Discharge ED - Sign-Out/Discharge Documenting (check all that apply): Patient Departure All imaging exams completed and their final reports reviewed: No Studies - Discharge Plan Condition: Stable Disposition: HOME Patient Education Materials: Gastritis (ED) Referrals: Hodan Spangler MD [Primary Care Provider] - If Needed Additional Instructions: Umbilicus -scope site skin surround the umbilicus looks normal no evidence of the wound opening whitish adherent material noted unsure if it is some debris or an absorbable suture I suspect you have gastritis stop motrin you can take mylanta 30 ml every 2 hours as needed recheck for new or worsening symptoms - Billing Disposition and Condition Condition: STABLE Disposition: Home
== END 2019-03-19 16:14 | disposition home or self-care (01) ==
LOC: UCEAST 14:49
DX: K29.70 Gastritis, unspecified, without bleeding (principal); R10.13 Epigastric pain; Z98.890 Other specified postprocedural states; Z88.2 Allergy status to sulfonamides; Z91.030 Bee allergy status
CPT/HCPCS: 93005; 99212; A9270-GY; G0463